=== PATIENT | male | born 1965 | race Caucasian/White ===

== ENCOUNTER 2021-09-07 01:25 | Inpatient (IN) ==
[2021-09-07] MEDS ORDERED: SODIUM CHLORIDE 0.9% 1000ML 1,000 ML IV STA (02:10)
[2021-09-07] MEDS ORDERED: ONDANSETRON INJ 2 MG/ML 2 ML VIAL IV STA (02:10)
[2021-09-07] MEDS ORDERED: MoRPHine SULFATE 4 MG/ML 1 ML CARP\\VIAL IV STA (02:15)
[2021-09-07 02:22] LABS: Basophils # (auto) 0.05 K/uL (0-0.2); Basophils % (auto) 0.6 %; Eosinophils # (auto) 0.06 K/uL (0-0.5); Eosinophils % (auto) 0.7 %; Hematocrit (blood only) 33.5 % (42-52); Hemoglobin 9.7 g/dL (14.0-18.0); Immature Granulocytes # (auto) 0.01 K/uL (0.00-0.02); Immature Granulocytes % (auto) 0.1 %; Lymphocytes # (auto) 1.12 K/uL (1.2-3.4); Mean Corpuscular Hemoglobin 22.2 pg (25-34); Mean Corpuscular Volume 76.7 fL (80-100); Mean Platelet Volume 8.7 fL (7.4-10.4); Monocytes # (auto) 0.43 K/uL (0.11-0.59); Monocytes % (auto) 5.4 %; Neutrophils # (auto) 6.35 K/uL (1.4-6.5); Neutrophils % (auto) 79.2 %; Platelet Count 448 K/uL (130-400); RDW Coefficient of Variation 17.3 % (11.5-14.5); RDW Standard Deviation 48.6 fL (36.4-46.3); Red Blood Count 4.37 M/uL (4.7-6.1); White Blood Count 8.02 K/uL (4.8-10.8)
[2021-09-07 02:27] LABS: Appearance Urine Cloudy (Clear); Bacteria Urine Automated Negative (Negative); Bilirubin Urine Negative (Negative); Blood Urine Negative (Negative); Color Urine Dark Yellow; Glucose Urine UA 2+ (Negative); Ketones Urine Trace (Negative); Leukocyte Esterase Urine Negative (Negative); Nitrite Urine Negative (Negative); Protein Urine Trace (Negative); RBC Urine Automated 0-4 /hpf (0-4); Specific Gravity Urine 1.025 (1.000-1.030); Urobilinogen Urine Negative (Negative); pH Urine 5.5 (4.5-7.5)
[2021-09-07 02:29] LABS: INR 1.1 (0.9-1.1)
[2021-09-07 02:44] LABS: Troponin I < 0.03 ng/ml (0-0.04)
[2021-09-07 02:45] LABS: Alanine Aminotransferase 68 U/L (7-52); Albumin Globulin Ratio 1.5 (0.9-2); Albumin Level 3.8 gm/dl (3.4-5.0); Alkaline Phosphatase 136 U/L (34-104); Anion Gap 12 (3-11); Aspartate Aminotransferase 70 U/L (13-39); BUN Creatinine Ratio 18.5 (10-20); Bilirubin,Total 0.7 mg/dl (0.2-1.0); Blood Urea Nitrogen 15 mg/dl (6-23); Carbon Dioxide 21 mmol/L (21-32); Chloride 98 mmol/L (98-107); Est GFR (Non-African American) 100.1 ml/min; Globulin 2.6 gm/dl (2.5-4.0); Glucose 268 mg/dl (70-99(Fasting)); Lipase 60 U/L (11-82); Potassium 3.5 mmol/L (3.5-5.1); Sodium 131 mmol/L (136-145); Total Protein 6.4 gm/dl (6.0-8.3)
[2021-09-07] MEDS ORDERED: OPTIRAY 320 100ml IV ONE (02:55)
[2021-09-07] MEDS ORDERED: LORazepam 2 MG/1 ML VIAL IV STA (03:06)
[2021-09-07] MEDS ORDERED: PIPERACILLIN/TAZOBACTAM 4.5 GM/120 ML BAG IV ONE (04:00)
[2021-09-07] MEDS ORDERED: PIPERACILL/TAZOBAC CONSULT ACTIVE PRN (04:14)
[2021-09-07] MEDS ORDERED: MoRPHine SULFATE 2 MG/ML CARP IV PRN (04:17)
[2021-09-07] MEDS ORDERED: MoRPHine SULFATE 4 MG/ML 1 ML CARP\\VIAL IV PRN (04:17)
--- NOTE | 2021-09-07 04:17 | Surgery Consultation ---
Date of Consultation September 07, 2021 Assessment & Plan (1) Gastric ulcer: The present situation was discussed with the patient the ER attending and medical service systemic is written for we will give another bolus fluids so far recently received 1 L we will plan to proceed with surgery The procedure was explained to the patient and significant other will be make an incision over so the perforation washout his abdomen Risk and complication including bleeding infection failure to heal was discussed with the patient and significant other and we will proceed accordingly Surgery has been called antibiotics to be administered All question answered including anticipated recovery time and days in the hospital We consult at the medical service who whereof to see the patient and will do the admission Present situation was discussed with the patient and significant other Patient is to go to surgery for oversewing of gastric ulcer abdominal washout Risk and complication of surgery were explained to him including bleeding infection injury to other organs Medical service was consulted and was kind enough to see the patient preoperatively and plan for admission All question answered Present time will give more fluid received a 1 L lactated Ringer's will give another liter systemic antibiotics has been ordered we will place an order for ULISSES carter Surgery has been called permit has been signed History of Present Illness Reason for Consultation: Perforated gastric ulcer History of Present Illness This 56-year-old gentleman here with significant other past history of heavy alcohol use tobacco abuse some past psychological issue approximately 11:00 last night started experience severe abdominal pain progressively worsened came to the emergency room work-up and occluding a CAT scan showed him to have findings likely gastric perforation He denies any previous surgical history He denies any cardiac history He has COPD and stating going up a hill he gets some shortness of breath Denies any swelling in his feet Home Medications Medication Instructions Recorded Confirmed Type clonazepam 0.5 mg tablet (Klonopin) 0.5 - 1 mg PO HS #20 tab 05/01/19 Rx Patient History Medical History (Updated 09/07/21 @ 04:14 by Randall Randall MD, FACS) Anxiety Depression Family History Other Family history non-contributory Social History Smoking Status: Current every day smoker Preferred Language: Persian Feels Safe at Home: Yes Physical Exam Physical Exam: Patient is alert coherent as stated here with significant other The head is normocephalic the sclerae nonicteric No cervical lymphadenopathy Lungs clear bilaterally no wheezing Heart normal sinus rhythm no murmurs or gallop The abdomen is distended acute tenderness generalized The extremity show no pedal edema Results & Data ([facility]) Vital Signs (Past 12 Hours) Vital Signs Temp Pulse Pulse Resp BP BP Pulse Ox 09/07/21 03:49 121 H 32 H 158/88 H 92 09/07/21 02:12 97 09/07/21 01:29 36.2 C L 117 H 18 176/135 H 99 Laboratory Results Lab noted Diagnostic Findings CT scan reviewed PG Care Time/CCT Total # of Minutes Spent Total Time Spent with Patient: Total time spent is greater than 50% in coordination of care (as documented) at patient's floor/unit and/or counseling patient: Coding Level of Care Code 39128 Office/OBS Consult Lvl 4 Diagnoses Gastric ulcer K25.9
[2021-09-07] MEDS ORDERED: LACTATED RINGER'S 500 ML IV ONE (04:25)
[2021-09-07] MEDS ORDERED: BUPIVACAINE 0.5 % 5 MG/1 ML MPF 30ML VIAL ONE (04:30)
--- NOTE | 2021-09-07 04:41 | History & Physical Report ---
Date of Service September 07, 2021 Assessment & Plan (1) Gastric ulcer: Plan: Ravi is a 56-year-old male with a past medical history of MS on no medications, anxiety/depression and alcohol abuse who presents with several weeks of abdominal pain severely worsened since 11 PM evening of admission. Perforated gastric ulcer Patient with several weeks of intermittent abdominal pain severely worsened evening of admission CTA/P: Free air in the abdomen, perforated gastric ulcer No leukocytosis. Hemoglobin 9.7. Troponin negative, glucose 268 Ethyl alcohol 17.3 mg/deciliter on admission Covid negative Received 1 L NSS in ER Zosyn 4.5 g slow infusion every 8 hours, additional LR 1 L bolus ordered and 120 cc/h Surgery consulted. Discussed with Dr. Randall, patient proceeding to OR emergently PPI gtt (2) Alcohol abuse: Plan: Patient reports increasing alcohol dependence drinking up to a fifth per day of hard liquor recently gin Patient reports last alcohol free days were last year, has experienced shakes in the past but no seizures or DTs Alcohol 17.3 on admission AWSS active protocol n.p.o. at this time Patient proceeding with surgery as above Thiamine 500 mg x 1, 200 mg 3 times daily, then 100 mg daily protocol Folic acid daily + Librium protocol once able to tolerate p.o. AST 70, ALT 63 elevation on admit CMP daily (3) Depression: Plan: Continue venlafaxine 75 mg XR once daily, currently held while n.p.o. (4) Multiple sclerosis: Plan: Patient reports he was diagnosed with this ~10 years ago but has not needed any medications does not have current deficits (5) COPD (chronic obstructive pulmonary disease): Plan: - Endorses history of intermittent wheezing with tobacco use 1-2ppd, no formal PFTs/inhaler use/COPD diagnosis - Albuterol PRN Plan: DVT prophylaxis: SCDs, teds make surgical intervention above Diet: N.p.o. Disposition: PCU/ICU pending surgical course and recovery CODE STATUS: Full code History of Present Illness Primary Care Provider: NO PCP Ravi is a 56-year-old male with a past medical history of MS on no medications, anxiety/depression and alcohol abuse who presents with several weeks of abdominal pain severely worsened since 11 PM evening of admission. H&P somewhat abbreviated as patient being prepped for OR. Ravi reports that he has a medical history of abdominal pain on and off for several weeks. He has been taking Pepto-Bismol intermittently for this, and twice daily in the past week which causes a stool to become dark/black. He has not appreciated any blood in his stool. Reports he also takes ibuprofen 2 tablets 200 mg a day intermittently, uses this for couple of days approximately 2 weeks each month for also/joint pain. He drinks alcohol daily, recently approximately 1/5 a day of liquor usually gin. He has not had an alcohol free day since last summer. He has experienced shaking when going without alcohol before, denies any history of seizure or DTs. Is aware CT scan has showed a perforated gastric ulcer with free air in the abdomen. Denies fever, chills. Endorses breathing is difficult because of the pain in his abdomen on inspiration, otherwise no shortness of breath. Denies any cardiac history, or history of heart problems. He does endorse intermittent wheezing, no wheezing at bedside. He does not have a formal diagnosis of COPD, does not use inhalers.He is a current smoker. He denies any medication or environmental allergies Denies recent medication changes Medical History: Reviewed Medications: Reviewed Surgical History: Reviewed Allergies: Reviewed Social History: Endorses high alcohol use as above, current tobacco use Code Status: Full code. Surrogate decision maker would be his Hyacinth Kay Medications Medication Instructions Recorded Confirmed Type clonazepam 0.5 mg tablet (Klonopin) 0.5 - 1 mg PO HS #20 tab 05/01/19 Rx Past Med/Surg History Medical History Anxiety Depression Multiple sclerosis Family History Other Family history non-contributory Social History (Updated 09/07/21 @ 04:49 by Parth Morris MD) Smoking Status: Current every day smoker Tobacco Type: Cigarettes packs per day: 1.5; Hx Alcohol Use: Yes (fifth per day, alcohol abuse/dependence) Alcohol type: hard liquor Alcohol Intake Frequency: 4 or More x per/Week Preferred Language: Chilean Feels Safe at Home: Yes Review of Systems Review of Systems: All systems reviewed & are unremarkable except as noted in HPI & below Physical Exam Physical Exam: General: A&Ox3. NAD. Peers uncomfortable, cooperative. Skin warm, moist HEENT: Atraumatic, normocephalic. Pupils equal and reactive to light. Vision and hearing grossly intact. Pulm: CTAB A&P. -wheezes, -rales, -rhonchi. Symmetrical chest rise. No increase in work of breathing. No respiratory distress. Cardiac: Tachycardic, regular, -mrg. Radial pulses intact and symmetrical. Abdominal: Diffusely tender to palpation, distended. Extremities: Sensation of soft touch intact in hands and feet bilaterally, PT pulses intact bilaterally, radial pulses intact bilaterally, cap refill approximately 2 seconds in the thumb bilaterally. Results & Data Results & Data ([facility]) Vital Signs (Past 12 Hours) Vital Signs Temp Pulse Pulse Resp BP BP Pulse Ox 09/07/21 03:49 121 H 32 H 158/88 H 92 09/07/21 02:12 97 09/07/21 01:29 36.2 C L 117 H 18 176/135 H 99 PG Care Time/CCT Total # of Minutes Spent Total Time Spent with Patient: Total time spent is greater than 50% in coordination of care (as documented) at patient's floor/unit and/or counseling patient: Coding Level of Care Code 65415 Initial Inpt Care Lvl 3 Diagnoses Gastric ulcer K25.9 Alcohol abuse F10.10 Depression F32.9 Multiple sclerosis G35 COPD (chronic obstructive pulmonary disease) J44.9
[2021-09-07] MEDS ORDERED: PROPOFOL IV EMULSION 10 MG/ML 20 ML VIAL IV ONE (04:42)
[2021-09-07] MEDS ORDERED: LIDOCAINE 2% 2 ML VIAL/AMP(20MG/ML) INFIL ONE (04:42)
[2021-09-07] MEDS ORDERED: ROCURONIUM BROMIDE 10 MG/ML 5 ML VIAL IV ONE (04:42)
[2021-09-07] MEDS ORDERED: SUCCINYLCHOLINE CHLORIDE 20 MG/ML 10 ML VIAL IV ONE (04:42)
[2021-09-07] MEDS ORDERED: NEOSTIGMINE METHYLSULFATE 1 MG/ML 10ML VIAL ONE (04:43)
[2021-09-07] MEDS ORDERED: GLYCOPYRROLATE 0.2 MG/ML VIAL ONE (04:43)
[2021-09-07] MEDS ORDERED: ONDANSETRON INJ 2 MG/ML 2 ML VIAL ONE (04:43)
--- NOTE | 2021-09-07 04:43 | Emergency Department Note ---
History of Present Illness General Chief complaint: Abdominal Pain Stated complaint: SEVERE ABDOMINAL PAIN Time Seen by Provider: 09/07/21 01:34 History of Present Illness Maximum Pain Intensity: 10 Ravi is a 56-year-old male that presents to the emergency room with severe epigastric pain starting at 11pm today. He is currently rating the pain a 10/10. He states that it radiates through to his back and all through his abdomen. The pain is described as a sharp constant pain. He has had a similar pain in the past, but nothing that has been this severe or lasted this long. He has tried taking tums, Pepcid and Advil, but nothing seems to help. He reports a history of alcohol abuse. He has consumed at least a 5th of 80 proof Gin today. With his last drink being around 9. He admits that he gets tremors, headaches, chill, and nausea whenever he goes without alcohol for more than 3-6 hours. The longest he has gone without a drink is for approximately a week before the pandemic [address] arted. He would like help to stop drinking and states he cant continue to go on like this. He also admits to smoking 2 packs of cigarettes daily. He admits to nausea, vomiting, lightheadedness, dizziness, headache, chest palpitations, and shortness of breath. He denies urinary urgency, incontinence, hematuria, but admits to increased frequency. He states that his bowel have never been regular, with bouts of frequent diarrhea. Home Medications Medication Instructions Recorded Confirmed Type clonazepam 0.5 mg tablet (Klonopin) 0.5 - 1 mg PO HS #20 tab 05/01/19 Rx Allergies Allergy/AdvReac Type Severity Reaction Status Date / Time No Known Allergies Allergy Verified 09/07/21 05:00 Past Med/Surg History Medical History Anxiety Depression Multiple sclerosis Family History Other Family history non-contributory Social History Smoking Status: Current every day smoker Tobacco Type: Cigarettes packs per day: 1.5; Hx Alcohol Use: Yes (fifth per day, alcohol abuse/dependence) Alcohol type: hard liquor Alcohol Intake Frequency: 4 or More x per/Week Preferred Language: Welsh Feels Safe at Home: Yes Review of Systems A total of 10 systems reviewed and were otherwise negative Physical Exam Vital Signs Vital Signs - 24 hr 09/07/21 01:29 09/07/21 02:12 09/07/21 03:49 Temperature 36.2 C L Temperature Source Temporal Artery Scan Pulse Rate 117 H Pulse Rate [Finger] 121 H Respiratory Rate 18 32 H Blood Pressure 176/135 H Blood Pressure [Right Arm] 158/88 H Blood Pressure Mean 148 Blood Pressure Mean [Right Arm] 111 Pulse Oximetry 99 97 92 Oxygen Delivery Method Room Air Room Air Room Air Sepsis Recent Fever Within 48 Hours No Sepsis New/Unexplained Change in Mental Status N/A Sepsis Action Taken by Nursing No Action Required VITALS: Vitals are noted on the nurse's note and reviewed by myself. Vital signs stable. GENERAL: This is a 56-year-old white male in no acute distress, nondiaphoretic, well-developed well-nourished. SKIN: The skin was without rashes, erythema, edema, or bruising. There is no tenting of the skin. Capillary refill less than 2 seconds. HEAD: Normocephalic atraumatic. EYES: Conjunctivae without injection, sclerae without icterus. NECK: Supple without nuchal rigidity. No lymphadenopathy. No JVD. HEART: Regular rate and rhythm without murmurs gallops or rubs. LUNGS: Clear to auscultation bilaterally without wheezes, rales or rhonchi. No retractions or accessory muscle use. ABDOMEN: Positive bowel sounds x 4. Distended. Diffuse tenderness to palpation, without masses or organomegaly. No guarding or rebound tenderness. No CVA tenderness to palpation. MUSCULOSKELETAL: No muscle atrophy, erythema, or edema noted. Full range of motion without joint tenderness in all extremities. No tenderness to palpation. Normal gait. Strength 5/5 throughout. NEURO: Patient was alert and oriented to person place and time. No focal neurological deficits. Course Course The patient was seen and evaluated as above. An order was placed for continuous cardiac monitoring. The monitor shows a sinus tachycardia at a rate of 121 bpm. IV access obtained, labs drawn. Labs reviewed by myself. Imaging performed and reviewed by myself and radiologist as noted. I discussed the findings with the patient at bedside. I discussed the case with my attending. I discussed the case with Dr. Randall, general surgeon on-call. He did agree to take the patient to the OR I discussed the case with [facility] hospitalist, Dr. Morris. They did agree to admit the patient to their service. Please see hospitalist and surgery dictation regarding ongoing management and final disposition of this patient Administered Medications Lactated Ringer's (Lr) 500 mls @ 999 mls/hr IV .Q31M ONE Stop: 09/07/21 04:55 Last Admin: 09/07/21 04:38 Dose: 999 mls/hr Documented by: [id number] Discontinued Medications Sodium Chloride (Nss 1000ml) 1,000 mls @ 999 mls/hr IV .Q1H1M STA Stop: 09/07/21 03:10 Last Infusion: 09/07/21 03:37 Dose: 0 mls/hr Documented by: [id number] Admin: 09/07/21 02:24 Dose: 999 mls/hr Documented by: [id number] Piperacillin Sod/Tazobactam Sod (Zosyn) 4.5 gm in 120 mls @ 240 mls/hr IV NOW ONE Stop: 09/07/21 04:29 Last Admin: 09/07/21 04:12 Dose: 240 mls/hr Documented by: [id number] Ioversol (Optiray 320 100ml) 94 ml IV ONCE ONE Stop: 09/07/21 02:56 Last Admin: 09/07/21 02:55 Dose: 94 ml Documented by: [id number] Lorazepam (Lorazepam 2 Mg/1 Ml Vial) 1 mg IV NOW STA Stop: 09/07/21 03:07 Last Admin: 09/07/21 03:18 Dose: 1 mg Documented by: [id number] Morphine Sulfate (Morphine Sulfate 4 Mg/Ml 1 Ml Carp\Vial) 4 mg IV NOW STA Stop: 09/07/21 02:16 Last Admin: 09/07/21 02:18 Dose: 4 mg Documented by: [id number] Ondansetron HCl (Ondansetron Inj 2 Mg/Ml 2 Ml Vial) 4 mg IV NOW STA Stop: 09/07/21 02:11 Last Admin: 09/07/21 02:18 Dose: 4 mg Documented by: [id number] Medical Decision Making Differential Diagnosis Etiologies such as appendicitis, diverticulitis, obstruction, inflammatory bowel disease, renal colic, PUD, biliary pathology, pancreatitis, mesenteric ischemia, aortic pathology, infections, genitourinary, UTI, perforated viscus, as well as others were entertained. Medical Records Attestation: I reviewed the patient's medical records. Home Medications Current Medication List: was personally reviewed by me Laboratory Data Attestation: I reviewed the patient's lab results. No leukocytosis. Anemia with a hemoglobin of 9.7 hematocrit of 33.5. Platelet count elevated 448. INR 1.1. Lipase 60. Troponin negative. ETOH 17.3. Result diagrams: 09/07/21 02:00 09/07/21 02:00 Lab Results 09/07/21 09/07/21 09/07/21 Range/Units 02:00 02:00 02:00 WBC 8.02 (4.8-10.8) K/uL RBC 4.37 L (4.7-6.1) M/uL Hgb 9.7 L (14.0-18.0) g/dL Hct 33.5 L (42-52) % MCV 76.7 L (80-100) fL MCH 22.2 L (25-34) pg MCHC 29.0 L (32-36) g/dL RDW Std Deviation 48.6 H (36.4-46.3) fL RDW Coeff of [place] 17.3 H (11.5-14.5) % Plt Count 448 H (130-400) K/uL MPV 8.7 (7.4-10.4) fL Immature Gran % (Auto) 0.1 % Neut % (Auto) 79.2 % Lymph % (Auto) 14.0 % [place] % (Auto) 5.4 % Eos % (Auto) 0.7 % Baso % (Auto) 0.6 % Neut # (Auto) 6.35 (1.4-6.5) K/uL Lymph # (Auto) 1.12 L (1.2-3.4) K/uL [place] # (Auto) 0.43 (0.11-0.59) K/uL Eos # (Auto) 0.06 (0-0.5) K/uL Baso # (Auto) 0.05 (0-0.2) K/uL Immature Gran # (Auto) 0.01 (0.00-0.02) K/uL PT 12.0 (9.0-12.0) Seconds INR 1.1 (0.9-1.1) Sodium 131 L (136-145) mmol/L Potassium 3.5 (3.5-5.1) mmol/L Chloride 98 (98-107) mmol/L Carbon Dioxide 21 (21-32) mmol/L Anion Gap 12 H (3-11) BUN 15 (6-23) mg/dl Creatinine 0.81 (0.6-1.4) mg/dl Est Cr Clr Drug Dosing 122.0 ml/min Est GFR ( Amer) 116.0 ml/min Est GFR (Non-Af Amer) 100.1 ml/min BUN/Creatinine Ratio 18.5 (10-20) Glucose 268 H (70-99(Fasting)) mg/dl Calcium 9.0 (8.5-10.1) mg/dl Total Bilirubin 0.7 (0.2-1.0) mg/dl AST 70 H (13-39) U/L ALT 68 H (7-52) U/L Alkaline Phosphatase 136 H (34-104) U/L Troponin I < 0.03 (0-0.04) ng/ml Total Protein 6.4 (6.0-8.3) gm/dl Albumin 3.8 (3.4-5.0) gm/dl Globulin 2.6 (2.5-4.0) gm/dl Albumin/Globulin Ratio 1.5 (0.9-2) Lipase 60 (11-82) U/L Urine Color Urine Appearance (Clear) Urine pH (4.5-7.5) Ur Specific [place] (1.000-1.030) Urine Protein (Negative) Urine Glucose (UA) (Negative) Urine Ketones (Negative) Urine Blood (Negative) Urine Nitrite (Negative) Urine Bilirubin (Negative) Urine Urobilinogen (Negative) Ur Leukocyte Esterase (Negative) Urine WBC (Auto) (0-5) /hpf Urine RBC (Auto) (0-4) /hpf U Hyaline Cast (Auto) (0-5) /lpf U Epithel Cells (Auto) (0-5) /lpf Urine Bacteria (Auto) (Negative) Ethyl Alcohol mg/dL (<10.0) mg/dl SARS-CoV-2, RNA, NAAT (NEGATIVE) 09/07/21 09/07/21 09/07/21 Range/Units 02:00 02:00 03:40 WBC (4.8-10.8) K/uL RBC (4.7-6.1) M/uL Hgb (14.0-18.0) g/dL Hct (42-52) % MCV (80-100) fL MCH (25-34) pg MCHC (32-36) g/dL RDW Std Deviation (36.4-46.3) fL RDW Coeff of [place] (11.5-14.5) % Plt Count (130-400) K/uL MPV (7.4-10.4) fL Immature Gran % (Auto) % Neut % (Auto) % Lymph % (Auto) % [place] % (Auto) % Eos % (Auto) % Baso % (Auto) % Neut # (Auto) (1.4-6.5) K/uL Lymph # (Auto) (1.2-3.4) K/uL [place] # (Auto) (0.11-0.59) K/uL Eos # (Auto) (0-0.5) K/uL Baso # (Auto) (0-0.2) K/uL Immature Gran # (Auto) (0.00-0.02) K/uL PT (9.0-12.0) Seconds INR (0.9-1.1) Sodium (136-145) mmol/L Potassium (3.5-5.1) mmol/L Chloride (98-107) mmol/L Carbon Dioxide (21-32) mmol/L Anion Gap (3-11) BUN (6-23) mg/dl Creatinine (0.6-1.4) mg/dl Est Cr Clr Drug Dosing ml/min Est GFR ( Amer) ml/min Est GFR (Non-Af Amer) ml/min BUN/Creatinine Ratio (10-20) Glucose (70-99(Fasting)) mg/dl Calcium (8.5-10.1) mg/dl Total Bilirubin (0.2-1.0) mg/dl AST (13-39) U/L ALT (7-52) U/L Alkaline Phosphatase (34-104) U/L Troponin I (0-0.04) ng/ml Total Protein (6.0-8.3) gm/dl Albumin (3.4-5.0) gm/dl Globulin (2.5-4.0) gm/dl Albumin/Globulin Ratio (0.9-2) Lipase (11-82) U/L Urine Color Dark Yellow Urine Appearance Cloudy A (Clear) Urine pH 5.5 (4.5-7.5) Ur Specific [place] 1.025 (1.000-1.030) Urine Protein Trace H (Negative) Urine Glucose (UA) 2+ H (Negative) Urine Ketones Trace H (Negative) Urine Blood Negative (Negative) Urine Nitrite Negative (Negative) Urine Bilirubin Negative (Negative) Urine Urobilinogen Negative (Negative) Ur Leukocyte Esterase Negative (Negative) Urine WBC (Auto) 1-5 (0-5) /hpf Urine RBC (Auto) 0-4 (0-4) /hpf U Hyaline Cast (Auto) 1-5 (0-5) /lpf U Epithel Cells (Auto) 10-20 H (0-5) /lpf Urine Bacteria (Auto) Negative (Negative) Ethyl Alcohol mg/dL 17.3 H (<10.0) mg/dl SARS-CoV-2, RNA, NAAT NEGATIVE (NEGATIVE) Imaging Data Radiologist's Impression: CT ABDOMEN & PELVIS With Contrast: There is free air in the abdomen. The etiology of this free air is likely secondary to a perforated gastric ulcer of the distal stomach. There is marked fatty infiltration of the liver. A small amount of free fluid in the abdomen and pelvis is nonspecific. The remaining solid organs are within normal limits. No bowel obstruction. No fracture. Normal appendix. Radiologist: Abbey Osorio MD ECG Data Attestation: I personally reviewed and interpreted this ECG as follows: Indication: + abdominal pain Rate (beats per minute): 108 Rhythm: + sinus tachycardia ECG [place]: + Left axis deviation ECG ST segments: no ST depression, no ST elevation or no T-wave inversions Comparison ECG Date: no prior available Blood Pressure Blood Pressure Findings: Elevated blood pressure MDM Narrative This 56-year-old male patient presents to the emergency department today for evaluation of epigastric abdominal pain. This has been intermittent for several weeks but significantly worsened at about 11 PM. Laboratory evaluation as above. CT imaging performed due to the patient's pain. Findings consistent with free air in the abdomen secondary to perforated gastric ulcer of the distal stomach. I did consult general surgery. He did agree to see the patient. Will take the patient to the OR. Hospitalist will complete the admission due to the alcoholism and questionable COPD. Patient medicated with morphine, Ativan, IV fluids, and Zosyn. Please see hospitalist and general surgery dictation regarding ongoing management of this patient. The chart was completed utilizing [employer] Speech voice recognition software. Grammatical errors, random word insertions, pronoun errors, and incomplete sentences are an occasional consequence of this system due to software limitations, ambient noise, and hardware issues. Any formal questions or concerns about the content, text, or information contained within the body of th is dictation should be directly addressed to the provider for clarification. Impression & Plan Gastric ulcer, Alcohol abuse, Abdominal pain Discharge Plan Visit Data Chief Complaint: Abdominal Pain Stated Complaint: SEVERE ABDOMINAL PAIN ED Provider: Johnathan John ED Midlevel Provider: Emely Joy Patient Disposition: Admitted As Inpatient Forms Stand Alone Forms: My [facility] katena Prescriptions Prescriptions: No Action clonazepam [Klonopin] 0.5 mg tablet 0.5 - 1 mg PO HS Qty: 20 RF: 0 Referrals Referrals: PCP,NO [Primary Care Provider] -
[2021-09-07] MEDS ORDERED: fentaNYL citrate 100 MCG/2 ML VIAL ONE ×3 (04:44→07:03)
[2021-09-07] MEDS ORDERED: HYDROmorphone INJ 2 MG/ML SYR/VIAL IV PRN (04:51)
[2021-09-07] MEDS ORDERED: ONDANSETRON INJ 2 MG/ML 2 ML VIAL IV PRN ×2 (04:51→23:50)
[2021-09-07] MEDS ORDERED: fentaNYL citrate 100 MCG/2 ML VIAL IV PRN (04:51)
[2021-09-07] MEDS ORDERED: ATROPINE SULFATE 0.1 MG/ML 10ML SYR IV PRN (04:51)
[2021-09-07] MEDS ORDERED: ePHEDrine sulfate 50 MG/ML AMP IV PRN (04:51)
[2021-09-07] MEDS ORDERED: PROMETHAZINE HCL 12.5 MG in SODIUM CHLORIDE 0.9% 50 ML IV PRN (04:51)
--- NOTE | 2021-09-07 04:52 | Anesthesiology Consultation ---
Date of Service September 07, 2021 Assessment & Plan Chart Review Chart Review: Acceptable Risk for Surgery Consults Requested none History Surgery Operation Date: 09/07/21 05:15 Proposed Procedures p Exploratory Laparotomy - Randall Randall MD, FACS Height/Weight Height: 5 ft 10 in Weight: 99.7 kg Medications Home Medications Medication Instructions Recorded Confirmed Last Taken clonazepam 0.5 mg tablet (Klonopin) 0.5 - 1 mg PO HS #20 tab 05/01/19 Unknown Active Medications Generic Name Dose Route Start Last Admin Trade Name Leola PRN Reason Stop Dose Admin Lactated Ringer's 500 mls @ 999 mls/hr 09/07/21 04:25 09/07/21 04:38 Lr IV 09/07/21 04:55 999 mls/hr .Q31M ONE Administration Past Medical History Medical History Anxiety Depression Multiple sclerosis Past Family History Family History Other Family history non-contributory Social History Smoking Status: Current every day smoker Hx Alcohol Use: Yes (fifth per day, alcohol abuse/dependence) Alcohol type: hard liquor Physical Exam Vital Signs Last Vital Signs Temp 36.2 C L 09/07/21 01:29 Pulse 121 H 09/07/21 03:49 Resp 32 H 09/07/21 03:49 BP 158/88 H 09/07/21 03:49 Pulse Ox 92 09/07/21 03:49 Testing Laboratory Results 09/07/21 02:00 09/07/21 02:00 PT 12.0 Seconds (9.0-12.0) 09/07/21 02:00 INR 1.1 (0.9-1.1) 09/07/21 02:00 Urine Color Dark Yellow 09/07/21 02:00 Urine Appearance Cloudy (Clear) A 09/07/21 02:00 Urine pH 5.5 (4.5-7.5) 09/07/21 02:00 Ur Specific [place] 1.025 (1.000-1.030) 09/07/21 02:00 Urine Protein Trace (Negative) H 09/07/21 02:00 Urine Glucose (UA) 2+ (Negative) H 09/07/21 02:00 Urine Ketones Trace (Negative) H 09/07/21 02:00 Urine Nitrite Negative (Negative) 09/07/21 02:00 Ur Leukocyte Esterase Negative (Negative) 09/07/21 02:00 Urine WBC (Auto) 1-5 /hpf (0-5) 09/07/21 02:00 Urine RBC (Auto) 0-4 /hpf (0-4) 09/07/21 02:00 U Hyaline Cast (Auto) 1-5 /lpf (0-5) 09/07/21 02:00 U Epithel Cells (Auto) 10-20 /lpf (0-5) H 09/07/21 02:00 Urine Bacteria (Auto) Negative (Negative) 09/07/21 02:00
--- NOTE | 2021-09-07 06:56 | Post Operative Brief Note ---
PG Immediate Post Op with CF Date of Surgery September 07, 2021 Pre & Post Diagnosis Operation Date: 09/07/21 05:15 Pre-Op Diagnosis: Perforated Pre Pyloric Gastric Ulcer Post-Op Diagnosis: Perforated Pre Pyloric Gastric Ulcer I identified the patient and participated in the time-out.: Yes Procedure Operation Date: 09/07/21 05:15 Actual Procedures p Exploratory Laparotomy and Suture Repair of Perforated Pre Pyloric Gastric Ulcer - Randall Randall MD, FACS Surgeon Randall Randall MD, FACS Milking System Installer 0 Estimated Blood Loss 30 Findings Consistent with Post-Op Diagnosis Specimens Specimen Description: Cath urine for routine C&S Drains Richie Drain (19fr) and Campbell Catheter (16fr campbell inserted without difficulty by Valeriano Powell RN. Campbell is patent and draining clear yellow urine. Anesthesia to monitor urine ouput intraoperatively.)
--- NOTE | 2021-09-07 07:28 | Operative Report ---
Post Operative Report Pre & Post Diagnosis Operation Date: 09/07/21 05:15 Pre-Op Diagnosis: Perforated Pre Pyloric Gastric Ulcer Post-Op Diagnosis: Perforated Pre Pyloric Gastric Ulcer I identified the patient and participated in the time-out.: Yes Procedure Operation Date: 09/07/21 05:15 Actual Procedures p Exploratory Laparotomy and Suture Repair of Perforated Pre Pyloric Gastric Ulcer - Randall Randall MD, FACS abdominal washout The patient was brought into the operative theater general endotracheal anesthesia patient was prepped byline solution properly draped systemic biotics on board timeout was had patient identified we made a midline incision in the upper abdomen approximately 2 inches below the xiphoid through the umbilical area deep to subcutaneous tissue went to the abdomen air escaped and we could see this fibrous exudate in the upper abdomen patient radiographically had what appeared to be perforated gastric ulcer at this point we irrigated the abdomen out multiple liters of normal saline then replaced the Porter retractor and to visualize the area the stomach. The stomach was markedly dilated even though he had a perforation we placed an NG tube at about 60 cm I could feel it in the stomach and placed on suction that is reelevated the left lobe of the liver we can see that the perforation had gone into the gallbladder area no true fistula was obtained were seen as we exposed the area with elected to place a Bookwalter retraction and identified the perforation which was approximately 2 cm on side in the prepyloric area he had some food particles coming out when he first identified it cleared it all up. This point elected to close tongue of omentum which we created extending proximally 4 inches and unrelated on the perforation by using 3-0 interrupted silk taking bites proximal and distal to opening in the stomach then laying the omentum on the perforation then tied to silk around the omentum these were done with 3-0 interrupted silk once this had been completed we further tacked down the patch taking bites with abnormal gastric wall to the omentum eliminating any tension that may been present for and I elected then to drain the subhepatic area after he stated it cleaned it out copiously out circumferentially above the liver down to the pelvis we placed a 19 round Richie drain to right upper quadrant stab wound placed the subhepatic line right around the stomach area perforation and sutured to the skin edge with 2-0 silk suture the abdomen was then closed with #1 PDS starting 1 cephalad and caudad and tied in the middle quarter inch Sharps was used in the subcu tinea distally and proximally with 3-0 silk and veronica for skin edges dressing was applied estimated blood loss 30 cc At the end the procedure I did take fluids from the Richie drain and send it for aerobes and anaerobes Spoke with his Kendra in waiting room Surgeon Randall Randall MD, FACS Receipt And Report Clerk 0 Estimated Blood Loss 30 Findings Consistent with Post-Op Diagnosis 2 cm prepyloric gastric ulcer perforation Specimens DRY SANDER abdominal fluid Drains 19 Richie drain subhepatic no gastric perforation Quarter-inch Mary and subcu Description of Procedure merda I attest to the content of the Intraoperative Record and any orders documented therein. Any exceptions are noted below.
--- NOTE | 2021-09-07 07:38 | CT Scan Report ---
ABDOMEN AND PELVIS CT WITH IV CONTRAST CT DOSE: 799.93 mGy.cm HISTORY: epigastric pain TECHNIQUE: Multiaxial CT images of the abdomen and pelvis were performed following the use of intrave nous contrast. A dose lowering technique was utilized adhering to the principles of ALARA. COMPARISON STUDY: None. FINDINGS: Bibasilar linear densities consistent with subsegmental atelectasis. No fractures within th e visualized osseous structures. Mild thickening at the distal esophagus. Severe hepatic steatosis. T he liver is mildly enlarged. Thickened/edematous gallbladder wall. The spleen, adrenal glands, and ki dneys are unremarkable. No hydronephrosis. The pancreas enhances normally. Thickening at the gastric antrum and proximal duodenum most pronounced at the duodenal bulb. There is small amount of pneumoper itoneum. There is inflammatory change surrounding the proximal duodenum. Therefore, these findings li alile represent perforated duodenal ulcer. The main portal vein is patent. No retroperitoneal lymphade nopathy. The bladder is unremarkable. Small amount of ascites. Small fat-containing left inguinal her ashwin. No evidence for bowel obstruction. Normal appendix. Small fat-containing umbilical hernia. IMPRESSION: 1. Inflammatory change within the right upper quadrant surrounding the thickened proximal duodenum. G iven the associated small amount of pneumoperitoneum, this likely represents a perforated duodenal ul cer. 2. The gallbladder wall is thickened/edematous which may be reactive to the adjacent duodenal abnorma lity. An acute cholecystitis is considered less likely but not entirely excluded. 3. Severe hepatic steatosis. 4. Small amount of ascites. 5. Urgent surgical consultation recommended. ACT 112: Negative or not required by law. Electronically signed by: Salvador Myers M.D. 09/07/2021 7:37 AM
--- NOTE | 2021-09-07 07:40 | Anesthesiology Progress Note ---
Date of Service September 07, 2021 Anesthesia Post Procedure Vital Signs Vital Signs: Temp Pulse Pulse Resp BP BP Pulse Ox 09/07/21 07:35 36.9 C 126 H 20 148/75 H 98 09/07/21 07:25 37.1 C 120 H 20 166/74 H 98 09/07/21 07:15 37.1 C 128 H 18 172/85 H 97 09/07/21 03:49 121 H 32 H 158/88 H 92 09/07/21 02:12 97 09/07/21 01:29 36.2 C L 117 H 18 176/135 H 99 Pain Intensity Abdomen: Pain Intensity: 7 Transfer of Care Handoff Completed per policy Notes Mental Status: alert / awake / arousable and participated in evaluation Patient Amnestic to Procedure: Yes Nausea / Vomiting: adequately controlled Pain: adequately controlled Airway Patency, RR, SpO2: stable & adequate BP & HR: stable & adequate Hydration State: stable & adequate Anesthetic Complications: no major complications apparent
--- NOTE | 2021-09-07 08:11 | XRay Report ---
XR chest 1V portable HISTORY: epigastric pain COMPARISON: None. FINDINGS: No pneumothorax. No pleural effusions. The cardiac silhouette is mildly enlarged. There are bibasilar linear densities consistent with subsegmental atelectasis. Otherwise, no focal lung consol idations to suggest pneumonia. No evidence for pulmonary edema. There are low lung volumes. IMPRESSION: 1. Mild cardiomegaly. 2. Low lung volumes with bibasilar linear densities likely representing subsegmental atelectasis. ACT 112: Negative or not required by law. Electronically signed by: Salvador Myers M.D. 09/07/2021 8:09 AM
--- NOTE | 2021-09-07 08:26 | Electrocardiogram Report ---
Test Reason : Blood Pressure : / mmHG Vent. Rate : 108 BPM Atrial Rate : 108 BPM P-R Int : 158 ms QRS Dur : 076 ms QT Int : 330 ms P-R-T Axes : 039 -78 059 degrees QTc Int : 442 ms Sinus tachycardia Left atrial enlargement Left anterior fascicular block Incomplete right bundle branch block Possible Old Inferior infarct Possible Old Anterior infarct Abnormal ECG No previous ECGs available Confirmed by Yung Bustamante ([id number]) on 09/07/2021 8:25:32 AM Referred By: REFERRED SELF Confirmed By:Yung Bustamante
[2021-09-07] MEDS ORDERED: ALBUT/IPRATROP 3MG/0.5MG NEB 3 ML VIAL NEB PRN (08:29)
[2021-09-07] MEDS ORDERED: LORazepam 1 MG TAB PO PRN (08:29)
[2021-09-07] MEDS ORDERED: PIPERACILLIN/TAZOBACTAM 4.5 GM in DEXTROSE 5% 100 ML IV SCH (08:29)
[2021-09-07] MEDS ORDERED: ATIVAN IV ALCOHOL WITHDRAWL IV PRN (08:29)
[2021-09-07] MEDS ORDERED: LORazepam 2 MG/1 ML VIAL IV PRN ×3 (08:29)
[2021-09-07] MEDS ORDERED: FOLIC ACID 1 MG TAB PO SCH (09:00)
[2021-09-07] MEDS: LACTATED RINGER'S 1,000 ML IV SCH ×3 (09:02→21:25)
[2021-09-07] MEDS: PANTOprazole 40 MG in DEXTROSE 5% 100 ML IV SCH ×4 (09:04→18:33)
[2021-09-07] MEDS ORDERED: THIAMINE HCL 500 MG in SODIUM CHLORIDE 0.9% 50 ML IV ONE (09:15)
[2021-09-07] MEDS: ACETAMINOPHEN 1,000 MG/100 ML VIAL IV SCH ×2 (09:17→16:27)
[2021-09-07] MEDS ORDERED: FOLIC ACID 1 MG in SYRINGE 9.8 ML IV ONE (09:30)
[2021-09-07] MEDS: FAMOTIDINE 20 MG in SYRINGE 3 ML IV SCH ×2 (09:36→21:21)
[2021-09-07 09:53] LABS: Estimated Average Glucose 194 mg/dl; Hemoglobin A1C 8.4 % (4.5-5.6)
[2021-09-07 09:55] LABS: Hematocrit (blood only) 32.8 % (42-52); Hemoglobin 9.4 g/dL (14.0-18.0); Mean Corpuscular Hemoglobin 21.9 pg (25-34); Mean Corpuscular Hgb Conc 28.7 g/dL (32-36); Mean Corpuscular Volume 76.5 fL (80-100); Mean Platelet Volume 8.6 fL (7.4-10.4); Platelet Count 347 K/uL (130-400); RDW Coefficient of Variation 17.2 % (11.5-14.5); RDW Standard Deviation 48.1 fL (36.4-46.3); Red Blood Count 4.29 M/uL (4.7-6.1); White Blood Count 19.37 K/uL (4.8-10.8)
[2021-09-07] MEDS: PIPERACILLIN/TAZOBACTAM 3.375 GM in DEXTROSE 5% 100 ML IV SCH ×2 (10:04→17:29)
[2021-09-07] MEDS: NICOTINE 21 MG/24 HR TDSY TD SCH (10:04)
[2021-09-07 10:12] LABS: Calcium 8.8 mg/dl (8.5-10.1); Est GFR (African American) 117.2 ml/min; Est GFR (Non-African American) 101.1 ml/min; Magnesium 1.5 mg/dl (1.7-2.4); Potassium 4.3 mmol/L (3.5-5.1)
[2021-09-07 10:30] LABS: Ferritin 14.8 ng/ml (8-388)
[2021-09-07] MEDS ORDERED: GLUCOSE 40% GEL 15 GM TUBE PO PRN (10:30)
[2021-09-07] MEDS ORDERED: GLUCOSE 10 TABS/TUBE PO PRN (10:30)
[2021-09-07] MEDS ORDERED: GLUCAGON FOR INJ 1 MG VIAL IM PRN (10:30)
[2021-09-07] MEDS ORDERED: DEXTROSE 50% 50 ML SYRINGE IV PRN (10:30)
[2021-09-07] MEDS ORDERED: CARBOHYDRATES FOR HYPOGLYCEMIA PO PRN (10:30)
[2021-09-07] MEDS: INSULIN ASPART PER UNIT SC SCH ×2 (12:20→17:02)
[2021-09-07] MEDS: MAGNESIUM SULFATE / D5W 1 GM/100 ML BAG IV SCH ×3 (12:41→16:26)
--- NOTE | 2021-09-07 19:00 | Communication Note ---
Date of Service: September 07, 2021 time - 1900 Saw patient in PCU a few hours following his exploratory laparotomy and repair of a perforated gastric ulcer. He was resting comfortably; had mild abdominal pain only. NG tube in place. was at bedside. I discussed with them the high risk of etoh withdrawal, the newly-diagnosed T2DM, iron deficiency, usual plan of care for the type of surgery he had, etc. Vitals - tachycardic, but BP wnl; O2 sats wnl; afebrile gen - comfortable, awake, alert mouth - MM dry nose - NG tube in place neck - no JVD heart - tachy, s1 s2 lungs - decreased BS bases; mild rales bases b/l; slight wheeze scattered b/l abd - distended, BS markedly decreased, dressings in place, central tenderness ext - no edema, pulses 2+ b/l repeat CBC post-op - H/H acceptable, elevated WBC, microcytic MCV; platelets wnl. BMP acceptable. Mag low 1.5. Transaminitis on LFTs. A1c 8.4%. A/P: 1. perforated gastric ulcer s/p repair. Appreciate gen surg assistance. NG tube management per surgery. NPO. IV zosyn for spilling of gastric contents into peritoneal cavity. IV pain meds. IV PPI drip. 2. iron deficiency anemia - suspect slow GI bleeding over extended period of time, perhaps from his gastric ulcer. Consider IV venofer while here. Will need colonoscopy/EGD down the line for completeness. 3. T2DM - will need DM education. Start novolog, may need basal insulin as well. 4. tobacco dependence - nicoderm patch 21mg. 5. etoh abuse/dependence - ativan per etoh withdrawal protocol. Not a candidate for gabapentin taper or librium taper. IV phenobarbital in small doses (there are protocols for such) may be an option - will explore this. IV thiamine. IV folate. Check b12 level am. 6. alcoholic hepatitis - trend LFTs. 7. hypomagnesemia - 2nd to #5 - 3 grams mag sulfate IV, repeat mag level am. DVT proph - if H/H remain stable add chemical means tomorrow. Aldo Bone MD
[2021-09-07] MEDS: HYDROmorphone INJ 0.5 MG/0.5 ML SYR IV PRN (21:19)
[2021-09-07] MEDS: INSULIN GLARGINE SOLOSTAR 100 UNITS/ML 3 ML PEN SC SCH (21:21)
[2021-09-08] MEDS: PANTOprazole 40 MG in DEXTROSE 5% 100 ML IV SCH ×5 (00:01→19:52)
[2021-09-08] MEDS: ACETAMINOPHEN 1,000 MG/100 ML VIAL IV SCH ×3 (00:04→17:05)
[2021-09-08] MEDS: INSULIN ASPART PER UNIT SC SCH ×4 (00:14→17:27)
[2021-09-08] MEDS: PIPERACILLIN/TAZOBACTAM 3.375 GM in DEXTROSE 5% 100 ML IV SCH ×3 (01:45→17:05)
[2021-09-08] MEDS: HYDROmorphone INJ 0.5 MG/0.5 ML SYR IV PRN ×4 (06:10→21:19)
[2021-09-08] MEDS: LACTATED RINGER'S 1,000 ML IV SCH ×3 (06:16→22:31)
[2021-09-08 06:41] LABS: Basophils # (auto) 0.03 K/uL (0-0.2); Basophils % (auto) 0.2 %; Eosinophils # (auto) 0.05 K/uL (0-0.5); Eosinophils % (auto) 0.3 %; Hematocrit (blood only) 30.1 % (42-52); Hemoglobin 8.5 g/dL (14.0-18.0); Immature Granulocytes # (auto) 0.03 K/uL (0.00-0.02); Immature Granulocytes % (auto) 0.2 %; Lymphocytes # (auto) 1.47 K/uL (1.2-3.4); Lymphocytes % (auto) 8.2 %; Mean Corpuscular Hemoglobin 21.7 pg (25-34); Mean Corpuscular Hgb Conc 28.2 g/dL (32-36); Mean Platelet Volume 8.7 fL (7.4-10.4); Monocytes # (auto) 1.41 K/uL (0.11-0.59); Monocytes % (auto) 7.8 %; Neutrophils # (auto) 15.04 K/uL (1.4-6.5); Neutrophils % (auto) 83.3 %; Platelet Count 347 K/uL (130-400); RDW Coefficient of Variation 17.6 % (11.5-14.5); RDW Standard Deviation 49.6 fL (36.4-46.3); Red Blood Count 3.91 M/uL (4.7-6.1); White Blood Count 18.03 K/uL (4.8-10.8)
[2021-09-08 07:25] LABS: Albumin Globulin Ratio 1.5 (0.9-2); Albumin Level 3.2 gm/dl (3.4-5.0); BUN Creatinine Ratio 15.2 (10-20); Bilirubin,Total 1.1 mg/dl (0.2-1.0); Calcium 8.9 mg/dl (8.5-10.1); Creatinine Clr Calc Pharmacy 109.1 ml/min; Est GFR (African American) 117.2 ml/min; Est GFR (Non-African American) 101.1 ml/min; Globulin 2.2 gm/dl (2.5-4.0); Potassium 3.8 mmol/L (3.5-5.1); Total Protein 5.4 gm/dl (6.0-8.3)
[2021-09-08] MEDS: FAMOTIDINE 20 MG in SYRINGE 3 ML IV SCH ×2 (07:47→21:12)
[2021-09-08] MEDS: FOLIC ACID 1 MG in SYRINGE 9.8 ML IV SCH (07:48)
[2021-09-08] MEDS: NICOTINE 21 MG/24 HR TDSY TD SCH (07:49)
[2021-09-08] MEDS: THIAMINE HCL 100 MG TAB PO SCH ×4 (07:49→22:07)
--- NOTE | 2021-09-08 10:12 | Surgery Progress Note ---
Date of Service September 08, 2021 Assessment & Plan (1) Gastric ulcer: Plan: POD#1 ex lap with repair of gastric ulcer + abdominal washout WBC 18(19); HR 90-100s, afebrile Remains on IV abx Continue NGT...may consider contrast study in next couple of days Continue BRITNEY drain Hernandez okay for d/c from our standpoint Out of bed as tolerates Pt seen/examined with Dr. Randall Admission and Anticipated Discharge Date Admission Date: September 07, 2021 Subjective Patient sitting up in chair. Has some R sided pain with deep breaths, but otherwise doing well. Physical Exam Physical Exam: awake/alert, sitting up in chair. no distress Gastrointestinal (Abdomen): Inspection/Auscultation: + abdominal surgical incision (c/d/i) Percussion/Palpation: abdomen soft BRITNEY drain cloudy serous output Results & Data ([facility]) Vital Signs (Past 12 Hours) Vital Signs Temp Pulse Pulse Resp BP Pulse Ox 09/08/21 07:40 37.0 C 105 H 18 145/82 H 97 09/08/21 04:00 36.8 C 91 H 18 141/81 H 95 09/07/21 23:30 36.5 C 105 H 20 133/76 96 09/07/21 22:18 109 H PG Care Time/CCT Total # of Minutes Spent Total Time Spent with Patient: Total time spent is greater than 50% in coordination of care (as documented) at patient's floor/unit and/or counseling patient: Coding Level of Care Code None Diagnoses Gastric ulcer K25.9
--- NOTE | 2021-09-08 14:16 | Hospitalist Progress Note ---
Date of Service September 08, 2021 Assessment & Plan (1) Gastric ulcer: Plan: Ravi is a 56-year-old male with a past medical history of MS on no medications, anxiety/depression and alcohol abuse who presents with several weeks of abdominal pain severely worsened since 11 PM evening of admission. Perforated gastric ulcer CTA/P: Free air in the abdomen, perforated gastric ulcer Ethyl alcohol 17.3 mg/deciliter on admission -09/07/21, taken to OR 2cm prepyloric gastric ulcer perforation with oversewing by Dr. Randall, patient proceeding to OR emergently Zosyn 4.5 g every 8 hours, PPI gtt for 3 days (09/10), then 40 mg iv bid for 4-7 (2) Alcohol abuse: Plan: Patient reports increasing alcohol dependence drinking up to a fifth per day of hard liquor recently gin Patient reports last alcohol free days were last year, has experienced shakes in the past but no seizures or DTs Alcohol 17.3 on admission _Awss scale , not on oral meds at this time due to gi issue - no active signs of withdrawal at this time Thiamine 500 mg x 1, 200 mg 3 times daily, then 100 mg daily protocol Folic acid daily (3) Depression: Plan: Continue venlafaxine 75 mg XR once daily, currently held while n.p.o. (4) Multiple sclerosis: Plan: Patient reports he was diagnosed with this ~10 years ago but has not needed any medications does not have current deficits (5) COPD (chronic obstructive pulmonary disease): Plan: - Endorses history of intermittent wheezing tobacco use 1-2ppd, no formal PFTs/inhaler use/COPD diagnosis - Albuterol PRN Plan: DVT prophylaxis: SCDs, teds make surgical intervention above Diet: N.p.o. Disposition: PCU/ICU pending surgical course and recovery CODE STATUS: Full code Admission and Anticipated Discharge Date Admission Date: September 07, 2021 Subjective pt feels well today, has no flatus, ngt with scant drainage, abdominal pain controlled Review of Systems Review of Systems: Mild distress and fatigue no headache, no visual changes no speech or swallowing issues no chest pain, pressure or palpitations no shortness of breath, cough or wheezes controlled abdominal pain, nausea without vomiting, no flatus no dysuria, hematuria or frequency, has campbell cath in place no focal joint pain or swelling no back pain, CVA tenderness or radicular pain no bruising, bleeding or rashes no focal signs of weakness or numbness or altered sensation no complaints of anxiety or depression.. Physical Exam Physical Exam: The patient appeared well nourished and normally developed. no signs of alcohol withdrawal Vital signs as documented. no tachycardia, mild hypertension Head exam is normocephalic atraumatic, ngt in left nare Neck is without JVD, thyromegaly, or carotid bruits. Lungs are clear to auscultation, no focal loss of breath sounds Cardiac exam, Rhythm is regular.. No murmurs, rubs or gallops. Abdominal exam reveals abscent bowel sounds, wound is dressed and slight distention with little pain Extremities are nonedematous and both pedal pulses are present Neurologic exam is alert and oriented, no focal loss of strength or sensation Skin is without bruises or rashes Psychologically is without concerns for anxiety or depression.. Results & Data Results & Data ([facility]) Vital Signs (Past 12 Hours) Vital Signs Temp Pulse Resp BP Pulse Ox 09/08/21 12:05 99.0 F 100 H 19 152/87 H 97 09/08/21 07:40 98.6 F 105 H 18 145/82 H 97 09/08/21 04:00 98.2 F 91 H 18 141/81 H 95 PG Care Time/CCT Total # of Minutes Spent Total Time Spent with Patient: Total time spent is greater than 50% in coordination of care (as documented) at patient's floor/unit and/or counseling patient: Coding Level of Care Code 73420 Subseq Hosp Care Lvl 2 Diagnoses Gastric ulcer K25.9 Alcohol abuse F10.10 Depression F32.9 Multiple sclerosis G35 COPD (chronic obstructive pulmonary disease) J44.9
[2021-09-08] MEDS: INSULIN GLARGINE SOLOSTAR 100 UNITS/ML 3 ML PEN SC SCH (21:21)
[2021-09-08] MEDS ORDERED: THIAMINE HCL 100 MG in SYRINGE 9 ML IV ONE (22:00)
[2021-09-09] MEDS: INSULIN ASPART PER UNIT SC SCH ×4 (00:20→17:44)
[2021-09-09] MEDS: PANTOprazole 40 MG in DEXTROSE 5% 100 ML IV SCH ×5 (01:35→20:14)
[2021-09-09] MEDS: ACETAMINOPHEN 1,000 MG/100 ML VIAL IV SCH ×3 (01:35→17:50)
[2021-09-09] MEDS: PIPERACILLIN/TAZOBACTAM 3.375 GM in DEXTROSE 5% 100 ML IV SCH ×3 (01:47→18:21)
[2021-09-09 06:13] LABS: Hematocrit (blood only) 29.2 % (42-52); Hemoglobin 8.3 g/dL (14.0-18.0); Mean Corpuscular Hemoglobin 21.8 pg (25-34); Mean Corpuscular Hgb Conc 28.4 g/dL (32-36); Mean Corpuscular Volume 76.6 fL (80-100); Mean Platelet Volume 8.4 fL (7.4-10.4); Platelet Count 338 K/uL (130-400); RDW Coefficient of Variation 17.5 % (11.5-14.5); RDW Standard Deviation 49.6 fL (36.4-46.3); Red Blood Count 3.81 M/uL (4.7-6.1); White Blood Count 13.54 K/uL (4.8-10.8)
[2021-09-09] MEDS: LACTATED RINGER'S 1,000 ML IV SCH ×2 (06:22→14:40)
[2021-09-09 06:34] LABS: Albumin Globulin Ratio 1.3 (0.9-2); BUN Creatinine Ratio 16.4 (10-20); Bilirubin,Total 0.9 mg/dl (0.2-1.0); Calcium 8.7 mg/dl (8.5-10.1); Creatinine Clr Calc Pharmacy 128.6 ml/min; Est GFR (African American) 125.4 ml/min; Est GFR (Non-African American) 108.2 ml/min; Globulin 2.4 gm/dl (2.5-4.0); Potassium 3.6 mmol/L (3.5-5.1); Total Protein 5.4 gm/dl (6.0-8.3)
--- NOTE | 2021-09-09 07:17 | Surgery Progress Note ---
Date of Service September 09, 2021 Assessment & Plan (1) Gastric ulcer: Plan: POD#2 status post Russ patch perforated prepyloric ulcers We will continue with the NG tube in place The patient can be transferred to regular floor if okay with the medical service We will get a contrast study to assess the status of the repair prior to removing the NG tube or the Richie drain POD#1 ex lap with repair of gastric ulcer + abdominal washout WBC 18(19); HR 90-100s, afebrile Remains on IV abx Continue NGT...may consider contrast study in next couple of days Continue BRITNEY drain Hernandez okay for d/c from our standpoint Out of bed as tolerates Pt seen/examined with Dr. Randall Admission and Anticipated Discharge Date Admission Date: September 07, 2021 Subjective Overall feels well apparently the NG tube fell out last night and was reinserted by the nurses The patient has been out of bed he is calm there is no evidence of DTs Physical Exam Physical Exam: Alert coherent lying in bed comfortable The abdomen is softly distended dressing on the incision is dry Right upper quadrant Richie drain serous fluid continues to be drained this is all related to the abdominal washout that we had and the excess fluid that was in the abdomen Results & Data ([facility]) Vital Signs (Past 12 Hours) Vital Signs Temp Pulse Pulse Resp BP Pulse Ox 09/09/21 03:40 36.8 C 92 H 20 145/80 H 94 09/08/21 23:34 36.7 C 104 H 20 142/85 H 90 09/08/21 22:20 103 H 09/08/21 20:06 36.8 C 106 H 16 150/90 H 96 PG Care Time/CCT Total # of Minutes Spent Total Time Spent with Patient: Total time spent is greater than 50% in coordination of care (as documented) at patient's floor/unit and/or counseling patient: Coding Level of Care Code None Diagnoses Gastric ulcer K25.9
--- NOTE | 2021-09-09 07:55 | Hospitalist Progress Note ---
Date of Service September 09, 2021 Assessment & Plan (1) Gastric ulcer: Plan: Ravi is a 56-year-old male with a past medical history of MS on no medications, anxiety/depression and alcohol abuse who presents with several weeks of abdominal pain severely worsened since 11 PM evening of admission. Perforated gastric ulcer CTA/P: Free air in the abdomen, perforated gastric ulcer Ethyl alcohol 17.3 mg/deciliter on admission -09/07/21, taken to OR 2cm prepyloric gastric ulcer perforation with oversewing by Dr. Randall, patient proceeding to OR emergently Zosyn 4.5 g every 8 hours, added caspofungin for yeast species seen not albicans PPI gtt for 3 days (09/10), then 40 mg iv bid for 4-7 (2) Alcohol abuse: Plan: Patient reports increasing alcohol dependence drinking up to a fifth per day of hard liquor recently gin Patient reports last alcohol free days were last year, has experienced shakes in the past but no seizures or DTs Alcohol 17.3 on admission _Awss scale , starting gabapentin with small sip - no active signs of withdrawal at this time Thiamine 500 mg x 1, 200 mg 3 times daily, then 100 mg daily protocol Folic acid daily with hypertension consider if part of withdrawal, prn clonidine (3) Depression: Plan: Continue venlafaxine 75 mg XR once daily, with small sip of water (4) Multiple sclerosis: Plan: Patient reports he was diagnosed with this ~10 years ago but has not needed any medications does not have current deficits (5) COPD (chronic obstructive pulmonary disease): Plan: - Endorses history of intermittent wheezing tobacco use 1-2ppd, no formal PFTs/inhaler use/COPD diagnosis - Albuterol PRN Plan: DVT prophylaxis: SCDs, teds make surgical intervention above Diet: N.p.o. Disposition: PCU/ICU pending surgical course and recovery CODE STATUS: Full code Admission and Anticipated Discharge Date Admission Date: September 07, 2021 Subjective pt states he feels improved today almost willing himself to feel better, less pain still no flatus culture of abdomen fluid intra op shows ran not albicans, started on caspofungin WBC did decrease today Review of Systems Review of Systems: Moderate distress and fatigue no headache, no visual changes no speech or swallowing issues no chest pain, pressure or palpitations no shortness of breath, cough or wheezes post op appropriate abdominal pain, no nausea or vomiting,does have constipation no dysuria, hematuria or frequency, has campbell will remove no focal joint pain or swelling no back pain, CVA tenderness or radicular pain no bruising, bleeding or rashes no focal signs of weakness or numbness or altered sensation no complaints of anxiety or depression.. Physical Exam Physical Exam: The patient appeared well nourished and normally developed. no active signs of alcohol withdrawal Vital signs as documented. slight hypertension and tachycardia, maybe post op pain Head exam is normocephalic atraumatic Neck is without JVD, thyromegaly, or carotid bruits. Lungs are clear to auscultation, no focal loss of breath sounds Cardiac exam, Rhythm is regular.. No murmurs, rubs or gallops. Abdominal exam reveals absent bowel sounds, soft non tender, no masses Extremities are nonedematous and both pedal pulses are present Neurologic exam is alert and oriented, no focal loss of strength or sensation, no tremor Skin is without bruises or rashes except for surgical incision and drains Psychologically is without concerns for anxiety or depression.. Results & Data Results & Data ([facility]) Vital Signs (Past 12 Hours) Vital Signs Temp Pulse Pulse Resp BP Pulse Ox 09/09/21 07:37 99.7 F H 101 H 20 173/95 H 95 09/09/21 03:40 98.2 F 92 H 20 145/80 H 94 09/08/21 23:34 98.1 F 104 H 20 142/85 H 90 09/08/21 22:20 103 H 09/08/21 20:06 98.2 F 106 H 16 150/90 H 96 PG Care Time/CCT Total # of Minutes Spent Total Time Spent with Patient: Total time spent is greater than 50% in coordination of care (as documented) at patient's floor/unit and/or counseling patient: Coding Level of Care Code 23874 Subseq Hosp Care Lvl 3 Diagnoses Gastric ulcer K25.9 Alcohol abuse F10.10 Depression F32.9 Multiple sclerosis G35 COPD (chronic obstructive pulmonary disease) J44.9
--- NOTE | 2021-09-09 08:39 | XRay Report ---
KUB HISTORY: ng tube placement COMPARISON: None. FINDINGS: Nasogastric tube terminates in the stomach. Midline skin veronica are noted. Nonspecific pun ctate calcification within the right midabdomen. No renal calculi. No ureteral calculi. Calcificatio ns in the deep pelvis likely represent phleboliths. There is a surgical drain within the right upper quadrant. No pneumoperitoneum or pneumatosis. IMPRESSION: 1. Nasogastric tube terminates in the stomach. 2. Interval postoperative changes as described above. ACT 112: Negative or not required by law. Electronically signed by: Salvador Myers M.D. 09/09/2021 8:37 AM
[2021-09-09] MEDS: NICOTINE 21 MG/24 HR TDSY TD SCH (10:18)
[2021-09-09] MEDS: FOLIC ACID 1 MG in SYRINGE 9.8 ML IV SCH (10:19)
[2021-09-09] MEDS: FAMOTIDINE 20 MG in SYRINGE 3 ML IV SCH ×2 (10:20→20:15)
[2021-09-09] MEDS: VENLAFAXINE HCL XR 75 MG CAPXR PO SCH (10:21)
[2021-09-09] MEDS: THIAMINE HCL 100 MG in SYRINGE 9 ML IV SCH (10:21)
[2021-09-09] MEDS ORDERED: CASPOFUNGIN 70 MG in SODIUM CHLORIDE 0.9% 250 ML IV ONE ×2 (11:00→14:00)
[2021-09-09] MEDS ORDERED: cloNIDine HCL 0.1 MG TAB PO PRN (12:25)
[2021-09-09] MEDS ORDERED: Nursing to Pharmacy Communication SCH (12:30)
[2021-09-09] MEDS ORDERED: GABAPENTIN 800MG ALCOHOL WITHDRAWAL LOAD PO ONE (12:51)
[2021-09-09] MEDS ORDERED: GABAPENTIN 400 MG CAP PO ONE (13:00)
--- NOTE | 2021-09-09 16:36 | Hospitalist Progress Note ---
Date of Service September 09, 2021 Assessment & Plan (1) Gastric ulcer: Plan: Ravi is a 56-year-old male with a past medical history of MS on no medications, anxiety/depression and alcohol abuse who presents with several weeks of abdominal pain severely worsened since 11 PM evening of admission. Perforated gastric ulcer CTA/P: Free air in the abdomen, perforated gastric ulcer Ethyl alcohol 17.3 mg/deciliter on admission -09/07/21, taken to OR 2cm prepyloric gastric ulcer perforation with oversewing by Dr. Randall, patient proceeding to OR emergently Zosyn 4.5 g every 8 hours, added caspofungin for yeast species seen not albicans being managed for (Acute) (local) peritonitis PPI gtt for 3 days (09/10), then 40 mg iv bid for 4-7 (2) Alcohol abuse: Plan: Patient reports increasing alcohol dependence drinking up to a fifth per day of hard liquor recently gin Patient reports last alcohol free days were last year, has experienced shakes in the past but no seizures or DTs Alcohol 17.3 on admission _Awss scale , starting gabapentin with small sip - no active signs of withdrawal at this time Thiamine 500 mg x 1, 200 mg 3 times daily, then 100 mg daily protocol Folic acid daily with hypertension consider if part of withdrawal, prn clonidine (3) Depression: Plan: Continue venlafaxine 75 mg XR once daily, with small sip of water (4) Multiple sclerosis: Plan: Patient reports he was diagnosed with this ~10 years ago but has not needed any medications does not have current deficits (5) COPD (chronic obstructive pulmonary disease): Plan: - Endorses history of intermittent wheezing tobacco use 1-2ppd, no formal PFTs/inhaler use/COPD diagnosis - Albuterol PRN Plan: DVT prophylaxis: SCDs, teds make surgical intervention above Diet: N.p.o. Disposition: PCU/ICU pending surgical course and recovery CODE STATUS: Full code Admission and Anticipated Discharge Date Admission Date: September 07, 2021 Results & Data Results & Data ([facility]) Vital Signs (Past 12 Hours) Vital Signs Temp Pulse Pulse Resp BP Pulse Ox 09/09/21 16:08 99.1 F 96 H 18 155/83 H 98 09/09/21 15:23 94 H 09/09/21 12:28 98.8 F 99 H 19 155/92 H 97 09/09/21 08:00 94 H 09/09/21 07:37 99.7 F H 101 H 20 173/95 H 95 PG Care Time/CCT Total # of Minutes Spent Total Time Spent with Patient: Total time spent is greater than 50% in coordination of care (as documented) at patient's floor/unit and/or counseling patient: Coding Level of Care Code None Diagnoses Gastric ulcer K25.9 Alcohol abuse F10.10 Depression F32.9 Multiple sclerosis G35 COPD (chronic obstructive pulmonary disease) J44.9
[2021-09-09] MEDS: GABAPENTIN 400 MG CAP PO SCH (20:16)
[2021-09-09] MEDS: INSULIN GLARGINE SOLOSTAR 100 UNITS/ML 3 ML PEN SC SCH (20:27)
[2021-09-10] MEDS: LACTATED RINGER'S 1,000 ML IV SCH ×3 (00:15→17:13)
[2021-09-10] MEDS: INSULIN ASPART PER UNIT SC SCH ×4 (00:15→18:35)
[2021-09-10] MEDS: ACETAMINOPHEN 1,000 MG/100 ML VIAL IV SCH (00:44)
[2021-09-10] MEDS: GABAPENTIN 400 MG CAP PO SCH ×3 (00:45→17:14)
[2021-09-10] MEDS: PANTOprazole 40 MG in DEXTROSE 5% 100 ML IV SCH ×5 (01:12→21:51)
[2021-09-10] MEDS: PIPERACILLIN/TAZOBACTAM 3.375 GM in DEXTROSE 5% 100 ML IV SCH ×3 (03:17→17:13)
--- NOTE | 2021-09-10 06:48 | Surgery Progress Note ---
Date of Service September 10, 2021 Assessment & Plan (1) Gastric ulcer: Plan: POD#3 At this point we will leave the NG tube out we will plan to get a contrast study tomorrow the next day before starting oral intake making sure that the repair is intact We will need to be continued on Protonix possibly have GI service see him before discharge so they can arrange for follow-up EGD to assess the healing of the ulcer I suspect within 6 weeks or so From my point of view the patient can be transferred to a regular floor when okay with the medical service POD#2 status post Russ patch perforated prepyloric ulcers We will continue with the NG tube in place The patient can be transferred to regular floor if okay with the medical service We will get a contrast study to assess the status of the repair prior to removing the NG tube or the Richie drain POD#1 ex lap with repair of gastric ulcer + abdominal washout WBC 18(19); HR 90-100s, afebrile Remains on IV abx Continue NGT...may consider contrast study in next couple of days Continue BRITNEY drain Hernandez okay for d/c from our standpoint Out of bed as tolerates Pt seen/examined with Dr. Randall Admission and Anticipated Discharge Date Admission Date: September 07, 2021 Subjective Overall feels well minimal abdominal discomfort start passing some flatus States during the night he had a vivid dream that tubes were pulled out of him and he pulled his NG tube out The nurses called me this morning regarding this an appropriate decision was made by her not to reinsert the NG tube until checked with the surgeon Physical Exam Physical Exam: Alert coherent resting comfortable The abdomen is softly distended nontender The Richie drainage subhepatic along the operative site the drainage is clearing up its more serous less cloudy Abdominal dressings intact Results & Data ([facility]) Vital Signs (Past 12 Hours) Vital Signs Temp Pulse Pulse Resp BP Pulse Ox 09/10/21 04:19 36.6 C 88 18 177/99 H 95 09/09/21 23:00 87 09/09/21 22:42 36.8 C 91 H 20 155/96 H 93 09/09/21 19:24 37.3 C 92 H 22 162/95 H 94 PG Care Time/CCT Total # of Minutes Spent Total Time Spent with Patient: Total time spent is greater than 50% in coordination of care (as documented) at patient's floor/unit and/or counseling patient: Coding Level of Care Code None Diagnoses Gastric ulcer K25.9
[2021-09-10 07:47] LABS: Albumin Globulin Ratio 1.2 (0.9-2); Albumin Level 2.9 gm/dl (3.4-5.0); BUN Creatinine Ratio 15.3 (10-20); Bilirubin,Total 0.9 mg/dl (0.2-1.0); Calcium 7.6 mg/dl (8.5-10.1); Creatinine Clr Calc Pharmacy 119.7 ml/min; Est GFR (African American) 121.7 ml/min; Globulin 2.4 gm/dl (2.5-4.0); Potassium 3.3 mmol/L (3.5-5.1); Total Protein 5.3 gm/dl (6.0-8.3)
[2021-09-10] MEDS: NICOTINE 21 MG/24 HR TDSY TD SCH (08:01)
[2021-09-10 08:15] LABS: Hematocrit (blood only) 29.8 % (42-52); Hemoglobin 8.4 g/dL (14.0-18.0); Mean Corpuscular Hemoglobin 21.3 pg (25-34); Mean Corpuscular Hgb Conc 28.2 g/dL (32-36); Mean Corpuscular Volume 75.6 fL (80-100); Mean Platelet Volume 8.7 fL (7.4-10.4); Platelet Count 378 K/uL (130-400); RDW Coefficient of Variation 16.9 % (11.5-14.5); Red Blood Count 3.94 M/uL (4.7-6.1)
[2021-09-10] MEDS: THIAMINE HCL 100 MG in SYRINGE 9 ML IV SCH (09:35)
[2021-09-10] MEDS: FOLIC ACID 1 MG in SYRINGE 9.8 ML IV SCH (09:35)
[2021-09-10] MEDS: FAMOTIDINE 20 MG in SYRINGE 3 ML IV SCH ×2 (09:36→21:50)
[2021-09-10] MEDS: VENLAFAXINE HCL XR 75 MG CAPXR PO SCH (09:37)
[2021-09-10] MEDS: CASPOFUNGIN 50 MG in SODIUM CHLORIDE 0.9% 250 ML IV SCH (10:44)
--- NOTE | 2021-09-10 16:16 | Hospitalist Progress Note ---
Date of Service September 10, 2021 Assessment & Plan (1) Gastric ulcer: Plan: Ravi is a 56-year-old male with a past medical history of MS on no medications, anxiety/depression and alcohol abuse who presents with several weeks of abdominal pain severely worsened since 11 PM evening of admission. Perforated gastric ulcer CTA/P: Free air in the abdomen, perforated gastric ulcer Ethyl alcohol 17.3 mg/deciliter on admission -09/07/21, taken to OR 2cm prepyloric gastric ulcer perforation with oversewing by Dr. Randall, patient proceeding to OR emergently Zosyn 4.5 g every 8 hours, added caspofungin for yeast species seen not albicans being managed for (Acute) (local) peritonitis We will consult infectious disease to help us determine whether this fungal culture needs to be treated and the duration of treatment PPI gtt for 3 days (09/10), then 40 mg iv bid for 4-7 (2) Alcohol abuse: Plan: Patient reports increasing alcohol dependence drinking up to a fifth per day of hard liquor recently gin Patient reports last alcohol free days were last year, has experienced shakes in the past but no seizures or DTs Alcohol 17.3 on admission _Awss scale , starting gabapentin with small sip - no active signs of withdrawal at this time Thiamine 500 mg x 1, 200 mg 3 times daily, then 100 mg daily protocol Folic acid daily with hypertension consider if part of withdrawal, prn clonidine (3) Depression: Plan: Continue venlafaxine 75 mg XR once daily, with small sip of water (4) Multiple sclerosis: Plan: Patient reports he was diagnosed with this ~10 years ago but has not needed any medications does not have current deficits (5) COPD (chronic obstructive pulmonary disease): Plan: - Endorses history of intermittent wheezing tobacco use 1-2ppd, no formal PFTs/inhaler use/COPD diagnosis - Albuterol PRN Plan: DVT prophylaxis: SCDs, teds make surgical intervention above Diet: Allowing small sips and p.o. meds Disposition: PCU/ICU pending surgical course and recovery CODE STATUS: Full code Admission and Anticipated Discharge Date Admission Date: September 07, 2021 Subjective Overall feels well minimal abdominal discomfort start passing some flatus having small sips of medications States during the night he had a vivid dream that tubes were pulled out of him and he pulled his NG tube out The patient has fungal culture and the fact that we will have a [facility] infectious disease consultation to determine duration of treatment. Review of Systems Review of Systems: Moderate distress and fatigue no headache, no visual changes no speech or swallowing issues no chest pain, pressure or palpitations no shortness of breath, cough or wheezes post op appropriate abdominal pain, no nausea or vomiting,does have flatus but still with constipation no dysuria, hematuria or frequency, has campbell will remove no focal joint pain or swelling no back pain, CVA tenderness or radicular pain no bruising, bleeding or rashes no focal signs of weakness or numbness or altered sensation no complaints of anxiety or depression.. Physical Exam Physical Exam: The patient appeared well nourished and normally developed. no active signs of alcohol withdrawal Vital signs as documented. slight hypertension and tachycardia, maybe post op pain Head exam is normocephalic atraumatic Neck is without JVD, thyromegaly, or carotid bruits. Lungs are clear to auscultation, no focal loss of breath sounds Cardiac exam, Rhythm is regular.. No murmurs, rubs or gallops. Abdominal exam reveals absent bowel sounds, soft non tender, no masses Extremities are nonedematous and both pedal pulses are present Neurologic exam is alert and oriented, no focal loss of strength or sensation, no tremor Skin is without bruises or rashes except for surgical incision and drains Psychologically is without concerns for anxiety or depression.. Results & Data Results & Data ([facility]) Vital Signs (Past 12 Hours) Vital Signs Temp Pulse Pulse Resp BP Pulse Ox 09/10/21 15:37 93 H 09/10/21 12:00 99.7 F H 95 H 18 159/87 H 97 09/10/21 08:00 86 09/10/21 04:19 97.9 F 88 18 177/99 H 95 PG Care Time/CCT Total # of Minutes Spent Total Time Spent with Patient: Total time spent is greater than 50% in coordination of care (as documented) at patient's floor/unit and/or counseling patient: Coding Level of Care Code 56013 Subseq Hosp Care Lvl 2 Diagnoses Gastric ulcer K25.9 Alcohol abuse F10.10 Depression F32.9 Multiple sclerosis G35 COPD (chronic obstructive pulmonary disease) J44.9
[2021-09-10] MEDS: INSULIN GLARGINE SOLOSTAR 100 UNITS/ML 3 ML PEN SC SCH (21:50)
[2021-09-11] MEDS: INSULIN ASPART PER UNIT SC SCH ×4 (00:30→17:12)
[2021-09-11] MEDS: LACTATED RINGER'S 1,000 ML IV SCH ×2 (01:31→08:56)
[2021-09-11] MEDS: PIPERACILLIN/TAZOBACTAM 3.375 GM in DEXTROSE 5% 100 ML IV SCH ×3 (01:32→18:13)
[2021-09-11] MEDS: GABAPENTIN 400 MG CAP PO SCH ×2 (01:32→14:05)
[2021-09-11] MEDS: PANTOprazole 40 MG in DEXTROSE 5% 100 ML IV SCH ×3 (02:47→14:03)
--- NOTE | 2021-09-11 06:45 | Surgery Progress Note ---
Date of Service September 11, 2021 Assessment & Plan (1) Gastric ulcer: Plan: POD#4 At this point will order it Gastrografin contrast study to visualize and see if the repair of the gastric perforation is intact and if so we can start him on clear liquids POD#3 At this point we will leave the NG tube out we will plan to get a contrast study tomorrow the next day before starting oral intake making sure that the repair is intact We will need to be continued on Protonix possibly have GI service see him before discharge so they can arrange for follow-up EGD to assess the healing of the ulcer I suspect within 6 weeks or so From my point of view the patient can be transferred to a regular floor when okay with the medical service POD#2 status post Russ patch perforated prepyloric ulcers We will continue with the NG tube in place The patient can be transferred to regular floor if okay with the medical service We will get a contrast study to assess the status of the repair prior to removing the NG tube or the Richie drain POD#1 ex lap with repair of gastric ulcer + abdominal washout WBC 18(19); HR 90-100s, afebrile Remains on IV abx Continue NGT...may consider contrast study in next couple of days Continue BRITNEY drain Hernandez okay for d/c from our standpoint Out of bed as tolerates Pt seen/examined with Dr. Randall Admission and Anticipated Discharge Date Admission Date: September 07, 2021 Subjective No major issues overall feels well states had multiple bowel movements no real abdominal pain Physical Exam Physical Exam: Alert coherent resting comfortably The sclerae nonicteric Oral mucosa moist The abdomen is soft prominent but as preop the incision is free of any drainage the Mary drain was removed yesterday The Richie drain right upper quadrant along the inferior aspect of the liver near the gastric repair serous fluid No calf tenderness or pedal edema Results & Data ([facility]) Vital Signs (Past 12 Hours) Vital Signs Temp Pulse Pulse Resp BP Pulse Ox 09/11/21 04:34 36.8 C 77 18 156/87 H 98 09/11/21 00:05 36.6 C 83 18 155/95 H 98 09/10/21 23:00 91 H 09/10/21 19:14 37.2 C 92 H 19 160/82 H 98 PG Care Time/CCT Total # of Minutes Spent Total Time Spent with Patient: Total time spent is greater than 50% in coordination of care (as documented) at patient's floor/unit and/or counseling patient: Coding Level of Care Code None Diagnoses Gastric ulcer K25.9
[2021-09-11 06:53] LABS: Hematocrit (blood only) 29.1 % (42-52); Hemoglobin 8.4 g/dL (14.0-18.0); Mean Corpuscular Hemoglobin 21.6 pg (25-34); Mean Corpuscular Hgb Conc 28.9 g/dL (32-36); Mean Corpuscular Volume 74.8 fL (80-100); Mean Platelet Volume 8.5 fL (7.4-10.4); Platelet Count 370 K/uL (130-400); RDW Coefficient of Variation 16.9 % (11.5-14.5); RDW Standard Deviation 46.9 fL (36.4-46.3); Red Blood Count 3.89 M/uL (4.7-6.1); White Blood Count 7.81 K/uL (4.8-10.8)
[2021-09-11 07:10] LABS: Albumin Globulin Ratio 1.2 (0.9-2); Albumin Level 2.9 gm/dl (3.4-5.0); BUN Creatinine Ratio 18.2 (10-20); Bilirubin,Total 0.8 mg/dl (0.2-1.0); Calcium 8.1 mg/dl (8.5-10.1); Creatinine Clr Calc Pharmacy 130.6 ml/min; Est GFR (African American) 126.1 ml/min; Est GFR (Non-African American) 108.8 ml/min; Globulin 2.4 gm/dl (2.5-4.0); Potassium 3.3 mmol/L (3.5-5.1); Total Protein 5.3 gm/dl (6.0-8.3)
[2021-09-11] MEDS: FAMOTIDINE 20 MG in SYRINGE 3 ML IV SCH (08:53)
[2021-09-11] MEDS: FOLIC ACID 1 MG in SYRINGE 9.8 ML IV SCH (08:53)
[2021-09-11] MEDS: THIAMINE HCL 100 MG in SYRINGE 9 ML IV SCH (08:54)
[2021-09-11] MEDS: NICOTINE 21 MG/24 HR TDSY TD SCH (08:55)
[2021-09-11] MEDS: VENLAFAXINE HCL XR 75 MG CAPXR PO SCH ×2 (08:56→21:10)
--- NOTE | 2021-09-11 10:05 | Fluoroscopy Report ---
SINGLE CONTRAST UPPER GI SERIES CLINICAL HISTORY: Gastric ulcer status post surgical repair. COMPARISON STUDY: Abdominal CT dated 09/07/2021. TECHNIQUE: A single contrast upper GI series was performed utilizing approximately 150 cc of Optiray 300. Spot images of the esophagus and stomach were obtained in multiple obliquities. FINDINGS: The patient swallowed contrast without difficulty. The esophagus is structurally normal without evide nce of intrinsic or extrinsic mass. There is mild dysmotility in the mid to distal esophagus. No mary roesophageal reflux was observed during the examination. The gastroesophageal junction distends maxmio lly. Midline skin clips are noted. The stomach is normal in configuration. Gastric fold thickening suggest s gastritis. There is no evidence of mass lesion on this single contrast examination. There is no jorge dence of leakage/extraluminal contrast. The duodenal bulb and sweep are normal in configuration. Fluoroscopy time: 1.1 minutes Fluoroscopic images: 15 IMPRESSION: 1. There is no evidence of extraluminal contrast/leakage from the stomach. 2. Esophageal dysmotility. 3. Suspect gastritis. ACT 112: Negative or not required by law. Electronically signed by: Leroy Padron M.D. 09/11/2021 10:04 AM
[2021-09-11] MEDS: CASPOFUNGIN 50 MG in SODIUM CHLORIDE 0.9% 250 ML IV SCH (14:04)
--- NOTE | 2021-09-11 14:36 | Hospitalist Progress Note ---
Date of Service September 11, 2021 Assessment & Plan (1) Gastric ulcer: Plan: Ravi is a 56-year-old male with a past medical history of MS on no medications, anxiety/depression and alcohol abuse who presents with several weeks of abdominal pain severely worsened since 11 PM evening of admission. Perforated gastric ulcer CTA/P: Free air in the abdomen, perforated gastric ulcer Ethyl alcohol 17.3 mg/deciliter on admission -09/07/21, taken to OR 2cm prepyloric gastric ulcer perforation with oversewing by Dr. Randall, patient proceeding to OR emergently Zosyn 4.5 g every 8 hours, added caspofungin for yeast species seen not albicans being managed for (Acute) (local) peritonitis PPI gtt for 3 days (09/10), then 40 mg iv bid for 4-7 - Plan for ID consult today. Hopefully able to move to PO abx and antifungals with their approval. (2) Alcohol abuse: Plan: Patient reports increasing alcohol dependence drinking up to a fifth per day of hard liquor recently gin Patient reports last alcohol free days were last year, has experienced shakes in the past but no seizures or DTs Alcohol 17.3 on admission _Awss scale , starting gabapentin - no active signs of withdrawal at this time Thiamine 500 mg x 1, 200 mg 3 times daily, then 100 mg daily protocol Folic acid daily (3) Depression: Plan: Continue venlafaxine 75 mg XR once daily (4) Multiple sclerosis: Plan: Patient reports he was diagnosed with this ~10 years ago but has not needed any medications does not have current deficits (5) COPD (chronic obstructive pulmonary disease): Plan: - Endorses history of intermittent wheezing tobacco use 1-2ppd, no formal PFTs/inhaler use/COPD diagnosis - Albuterol PRN Plan: DVT prophylaxis: Lovenox 40 mg SQ daily Admission and Anticipated Discharge Date Admission Date: September 07, 2021 Subjective Doing well today. He has some soreness on the lateral ribs because he is using his central abdominal muscles less. He is having some diarrhea from the antibiotics, but definitely moving his bowels. No nausea. Appetite is good. Reports no fevers/chills, chest pain, shortness of breath, abdominal pain, nausea, or vomiting. Physical Exam Constitutional: WD/WN, vitals as above Eyes: EOM intact bilaterally; no conjunctival abnormality ENMT: external ear and nose normal, oropharynx normal Neck: trachea midline, no thyromegaly normal visual inspection Respiratory: normal respiratory effort, lungs clear to auscultation no respiratory distress Cardiovascular: RRR, no murmur, no edema Gastrointestinal (Abdomen): Inspection/Auscultation: + abdominal surgical incision; abdomen not distended Musculoskeletal: no cyanosis or clubbing, extremities motor strength 5/5 Skin: no rashes, warm and dry Neurologic: moves all extremities and awake Psychiatric: Orientation: alert, oriented to person and cooperative Results & Data Results & Data ([facility]) Vital Signs (Past 12 Hours) Vital Signs Temp Pulse Pulse Resp BP Pulse Ox 09/11/21 11:03 36.5 C 96 H 18 160/83 H 99 09/11/21 08:00 82 09/11/21 07:33 36.9 C 85 18 159/90 H 99 09/11/21 04:34 36.8 C 77 18 156/87 H 98 PG Care Time/CCT Total # of Minutes Spent Total Time Spent with Patient: Total time spent is greater than 50% in coordination of care (as documented) at patient's floor/unit and/or counseling patient: Coding Level of Care Code 51537 Subseq Hosp Care Lvl 2 Diagnoses Gastric ulcer K25.9 Alcohol abuse F10.10 Depression F32.9 Multiple sclerosis G35 COPD (chronic obstructive pulmonary disease) J44.9
[2021-09-11] MEDS: FAMOTIDINE 20 MG TAB PO SCH (20:58)
[2021-09-11] MEDS: INSULIN GLARGINE SOLOSTAR 100 UNITS/ML 3 ML PEN SC SCH (20:58)
[2021-09-11] MEDS: PANTOprazole 40 MG in SYRINGE 0 ML IV SCH (21:10)
[2021-09-12] MEDS: INSULIN ASPART PER UNIT SC SCH ×5 (00:04→21:06)
[2021-09-12] MEDS: GABAPENTIN 400 MG CAP PO SCH (00:13)
[2021-09-12] MEDS ORDERED: Nursing to Pharmacy Communication SCH (00:15)
[2021-09-12] MEDS: PIPERACILLIN/TAZOBACTAM 3.375 GM in DEXTROSE 5% 100 ML IV SCH ×3 (02:21→17:49)
[2021-09-12] MEDS: ACETAMINOPHEN 325 MG TAB PO PRN ×2 (05:14→17:42)
[2021-09-12 06:37] LABS: Hematocrit (blood only) 31.6 % (42-52); Hemoglobin 9.2 g/dL (14.0-18.0); Mean Corpuscular Hemoglobin 21.7 pg (25-34); Mean Corpuscular Hgb Conc 29.1 g/dL (32-36); Mean Corpuscular Volume 74.5 fL (80-100); Mean Platelet Volume 8.6 fL (7.4-10.4); Platelet Count 424 K/uL (130-400); RDW Coefficient of Variation 16.6 % (11.5-14.5); RDW Standard Deviation 45.3 fL (36.4-46.3); Red Blood Count 4.24 M/uL (4.7-6.1); White Blood Count 8.15 K/uL (4.8-10.8)
[2021-09-12 07:01] LABS: BUN Creatinine Ratio 12.9 (10-20); Calcium 8.6 mg/dl (8.5-10.1); Creatinine Clr Calc Pharmacy 104.6 ml/min; Est GFR (African American) 106.7 ml/min; Est GFR (Non-African American) 92.1 ml/min; Phosphorus 4.1 mg/dl (2.5-4.9); Potassium 3.5 mmol/L (3.5-5.1)
[2021-09-12] MEDS: THIAMINE HCL 100 MG TAB PO SCH (10:06)
[2021-09-12] MEDS: FOLIC ACID 1 MG TAB PO SCH (10:06)
[2021-09-12] MEDS: PANTOprazole 40 MG in SYRINGE 0 ML IV SCH ×2 (10:06→21:15)
[2021-09-12] MEDS: FAMOTIDINE 20 MG TAB PO SCH ×2 (10:07→19:46)
[2021-09-12] MEDS: NICOTINE 21 MG/24 HR TDSY TD SCH (10:13)
[2021-09-12] MEDS: CASPOFUNGIN 50 MG in SODIUM CHLORIDE 0.9% 250 ML IV SCH (10:28)
[2021-09-12] MEDS: VENLAFAXINE HCL XR 75 MG CAPXR PO SCH (10:28)
--- NOTE | 2021-09-12 11:50 | Gastrointestinal Consultation ---
Date of Consultation September 12, 2021 Assessment & Plan (1) Alcohol abuse: (2) Gastric ulcer: 1. Outpatient EGD in approximately 6 weeks. 2. Continue Pantoprazole 40 mg BID upon discharge. 3. Continue diet advancement per surgery recommendations. 4. Agree with plan for either inpt/outpt alcohol treatment. 5. Supportive care per primary team. Supervising Physician Co-Signing Physician Notes I personally evaluated the patient and agree with the findings as documented by KRISTIN James Exam: Constitutional: WD/WN, vitals as above General: EOM intact bilaterally Neck: normal visual inspection Respiratory: normal respiratory effort, lungs clear to auscultation Cardiovascular: RRR, no murmur, no edema Gastrointestinal: abdomendressed s/p surgery, nondistended, soft, mild umbilical/epigastric tenderness, no hepatosplenomegaly Musculoskeletal: no cyanosis, head normal to inspection Skin: no rashes, warm and dry Neurologic: moves all extremities Psychiatric: A and O x3, euthymic affect History of Present Illness Reason for Consultation: Perforated gastric ulcer Requesting Physician: Dr. Randall Attending Physician: Aldo Bone History of Present Illness Patient is a 56 y.o. male with a history of ETOH and alcohol abuse as well as anxiety, depression and COPD admitted with an abrupt onset of severe gastric pain on 09/07/21. He is status post ex lap repair of gastric perforation by Dr. Randall. He has a BRITNEY drain intact. Started liquid diet today. Patient was noted to have iron deficiency anemia on arrival with hemoglobin of 9.4, hematocrit 32.8, and MCV 76.5. Found to be hyponatremic with sodium level on 129, likely related to alcohol abuse, and leukocytosis of ~19,000 which has improved with IV antibiotics. He also remains on BID PPI. Prior to admission, the patient endorses consuming approximately a fifth of liquor daily. Also with some reflux symptoms which he treated with antacids intermittently. No consistent use of acid suppressive therapy. Currently, he reports mild incisional pain but no n/v or overt GIB. Allergies Allergy/AdvReac Type Severity Reaction Status Date / Time No Known Allergies Allergy Verified 09/07/21 05:00 Home Medications Medication Instructions Recorded Confirmed Type clonazepam 0.5 mg tablet (Klonopin) 0.5 - 1 mg PO HS #20 tab 05/01/19 Rx Patient History Medical History Anxiety Depression Multiple sclerosis Surgical History H/O exploratory laparotomy (09/07/21) Exploratory Laparotomy and Suture Repair of Perforated Pre Pyloric Gastric Ulcer - Randall Randall MD, FACS abdominal washout 09/07/2021 Family History Other Family history non-contributory Social History Smoking Status: Current every day smoker Tobacco Type: Cigarettes packs per day: 1.5; Do You Dip or Chew Tobacco: No; Hx Alcohol Use: Yes Alcohol type: hard liquor Alcohol Intake Frequency: 4 or More x per/Week Hx Substance Use: No Preferred Language: Macedonian Communication Ability: Effective Valving 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 Required: No Beliefs That Will Affect Care: None marital status: Current Living Situation: Significant Other Other Information That Helps Us Care for You: No Feels Safe at Home: Yes Assistive Devices: None Review of Systems Review of Systems: All systems reviewed & are unremarkable except as noted in HPI & below Physical Exam Constitutional: WD/WN, vitals as above Eyes: EOM intact bilaterally; sclerae not anicteric Respiratory: normal respiratory effort, lungs clear to auscultation Cardiovascular: Rate/Rhythm: regular rate and regular rhythm Gastrointestinal (Abdomen): Inspection/Auscultation: normal bowel sounds large dressing intact with associated BRITNEY drain producing small amount of serous fluid. Psychiatric: A+Ox3, euthymic affect Results & Data ([facility]) Vital Signs (Past 12 Hours) Vital Signs Temp Pulse Resp BP BP Pulse Ox 09/12/21 07:56 36.6 C 84 18 150/85 H 98 09/12/21 04:22 37.2 C 80 18 139/85 97 09/11/21 23:57 37.2 C 83 18 150/92 H 98 Laboratory Results Abnormal lab results 09/11/21 09/11/21 09/12/21 Range/Units 16:24 23:54 06:24 RBC 4.24 L (4.7-6.1) M/uL Hgb 9.2 L (14.0-18.0) g/dL Hct 31.6 L (42-52) % MCV 74.5 L (80-100) fL MCH 21.7 L (25-34) pg MCHC 29.1 L (32-36) g/dL RDW Coeff of [place]ady 16.6 H (11.5-14.5) % Plt Count 424 H (130-400) K/uL Sodium (136-145) mmol/L Glucose (70-99(Fasting)) mg/dl POC Glucose 107 H 122 H (70-99) mg/dl 09/12/21 09/12/21 09/12/21 Range/Units 06:24 07:47 11:07 RBC (4.7-6.1) M/uL Hgb (14.0-18.0) g/dL Hct (42-52) % MCV (80-100) fL MCH (25-34) pg MCHC (32-36) g/dL RDW Coeff of [place] (11.5-14.5) % Plt Count (130-400) K/uL Sodium 134 L (136-145) mmol/L Glucose 124 H (70-99(Fasting)) mg/dl POC Glucose 119 H 106 H (70-99) mg/dl PG Care Time/CCT Total # of Minutes Spent Total Time Spent with Patient: Total time spent is greater than 50% in coordination of care (as documented) at patient's floor/unit and/or counseling patient: Coding Level of Care Code 75097 Initial Inpt Care Lvl 3 Diagnoses Alcohol abuse F10.10 Gastric ulcer K25.9
[2021-09-12] MEDS ORDERED: IRON SUCROSE 200 MG in 0.9 % SODIUM CHLORIDE 100 ML IV ONE (14:00)
--- NOTE | 2021-09-12 14:00 | Hospitalist Progress Note ---
Date of Service September 12, 2021 Assessment & Plan (1) Gastric ulcer: Plan: Perforated gastric ulcer with acute peritonitis. POD #5 s/p exploratory laparotomy with Russ patch repair. s/p Upper GI series without extravasation of contrast. tolerated clears, now on full liquids and tolerating that as well. s/p PPI drip for 3 days (finished AM of 09/11). then 40mg iv bid x 3 days (started PM of 09/11). Remains on IV zosyn and IV caspofungin for peritonitis - see below. appreciate gen surgery recs/management. check H pylori stool ag GI consult completed - will have outpatient EGD in ~6 weeks (2) Peritonitis, acute generalized: Plan: Intra-op peritoneal fluid culture grew ran glabrata. He is day #4 of IV caspofungin. He is day #6 of IV zosyn. He has no evidence of ongoing peritonitis on exam. Appreciate [facility] ID consultation. Plan 7 days of IV zosyn. Plan 10 days of IV caspofungin. If he d/c home soon hopefully can perform once daily anti-fungals outside the hospital - will need SW assistance. (3) Alcohol abuse: Plan: despite such no evidence of etoh withdrawal. completed gabapentin taper. cont thiamine, cont folate. (4) Depression: Plan: Continue venlafaxine 75 mg XR once daily (5) Multiple sclerosis: Plan: Patient reports he was diagnosed with this ~10 years ago but has not needed any medications for such. (6) COPD (chronic obstructive pulmonary disease): Plan: no flare at this time bronchodilators prn (7) Iron deficiency anemia: Plan: severe ferritin = 14.8. likely had smoldering blood loss from his ulcer for weeks-months. will give IV venofer today - start with 200mg x 1. then give IV venofer tomorrow - 300mg as tolerated. (8) Type 2 diabetes mellitus: Plan: Hba1c 8.4% at discharge will use amaryl 1mg daily. poor candidate for metformin due to etoh use. cont lantus-novolog while here. Plan: DVT prophylaxis: Lovenox 40 mg SQ daily extensively updated by phone this evening with surgery's permission I consulted PT/OT Admission and Anticipated Discharge Date Admission Date: September 07, 2021 Subjective patient was sitting in chair doing work on his home computer he feels good mild abdominal pain no vomiting tolerating full liquids having stools - they are loose denies etoh withdrawal symptoms he denies tremors or anxiety hoping for d/c home soon tele wnl overnight Review of Systems Review of Systems: gen - overall feels good, good energy, no fever cv - no chest pain pulm - no dyspnea GI - mild abdominal pain (incisional); no nausea Results & Data Results & Data ([facility]) Vital Signs (Past 12 Hours) Vital Signs Temp Pulse Resp BP BP Pulse Ox 09/12/21 07:56 36.6 C 84 18 150/85 H 98 09/12/21 04:22 37.2 C 80 18 139/85 97 Laboratory Results Laboratory Results - last 24 hr 09/12/21 09/12/21 09/12/21 06:24 06:24 07:47 WBC 8.15 RBC 4.24 L Hgb 9.2 L Hct 31.6 L MCV 74.5 L MCH 21.7 L MCHC 29.1 L RDW Std Deviation 45.3 RDW Coeff of Shady 16.6 H Plt Count 424 H MPV 8.6 Sodium 134 L Potassium 3.5 Chloride 104 Carbon Dioxide 22 Anion Gap 8 BUN 12 Creatinine 0.93 Est Cr Clr Drug Dosing 104.6 Est GFR ( Amer) 106.7 Est GFR (Non-Af Amer) 92.1 BUN/Creatinine Ratio 12.9 Glucose 124 H POC Glucose 119 H Calcium 8.6 Phosphorus 4.1 Magnesium 2.0 Stool H. pylori Ag 09/12/21 09/12/21 09/12/21 11:07 16:09 19:39 WBC RBC Hgb Hct MCV MCH MCHC RDW Std Deviation RDW Coeff of Shady Plt Count MPV Sodium Potassium Chloride Carbon Dioxide Anion Gap BUN Creatinine Est Cr Clr Drug Dosing Est GFR ( Amer) Est GFR (Non-Af Amer) BUN/Creatinine Ratio Glucose POC Glucose 106 H 119 H Calcium Phosphorus Magnesium Stool H. pylori Ag Pending 09/12/21 19:55 WBC RBC Hgb Hct MCV MCH MCHC RDW Std Deviation RDW Coeff of Shady Plt Count MPV Sodium Potassium Chloride Carbon Dioxide Anion Gap BUN Creatinine Est Cr Clr Drug Dosing Est GFR ( Amer) Est GFR (Non-Af Amer) BUN/Creatinine Ratio Glucose POC Glucose 126 H Calcium Phosphorus Magnesium Stool H. pylori Ag PG Care Time/CCT Total # of Minutes Spent Total Time Spent with Patient: Total time spent is greater than 50% in coordination of care (as documented) at patient's floor/unit and/or counseling patient: Coding Level of Care Code 65579 Subseq Hosp Care Lvl 3 Diagnoses Gastric ulcer K25.9 Alcohol abuse F10.10 Depression F32.9 Multiple sclerosis G35 COPD (chronic obstructive pulmonary disease) J44.9 Iron deficiency anemia D50.9 Type 2 diabetes mellitus E11.9 Peritonitis, acute generalized K65.0
--- NOTE | 2021-09-12 21:02 | Surgery Progress Note ---
Date of Service September 12, 2021 Late entry Assessment & Plan (1) Gastric ulcer: Plan: POD 5 repair of perforated ulcer keep on full liquids maintain drain on zosyn, caspofungin, protonix consider advancing diet and discharge in next 1-2 days outpatient EGD Admission and Anticipated Discharge Date Admission Date: September 07, 2021 Subjective patient seen earlier this AM tolerating full liquids, minimal pain, ambulating Physical Exam Gastrointestinal (Abdomen): Inspection/Auscultation: + abdominal surgical drain present (serous drainage); abdomen not distended Results & Data ([facility]) Vital Signs (Past 12 Hours) Vital Signs Temp Pulse Pulse Resp BP Pulse Ox 09/12/21 19:06 36.8 C 83 19 162/95 H 96 09/12/21 16:00 85 09/12/21 15:58 36.9 C 84 18 163/93 H 97 09/12/21 14:40 36.7 C 86 154/90 H 99 PG Care Time/CCT Total # of Minutes Spent Total Time Spent with Patient: Total time spent is greater than 50% in coordination of care (as documented) at patient's floor/unit and/or counseling patient: Coding Level of Care Code None Diagnoses Gastric ulcer K25.9
[2021-09-12] MEDS: INSULIN GLARGINE SOLOSTAR 100 UNITS/ML 3 ML PEN SC SCH (21:09)
[2021-09-13] MEDS ORDERED: GABAPENTIN 400 MG CAP PO SCH (01:00)
[2021-09-13] MEDS: PIPERACILLIN/TAZOBACTAM 3.375 GM in DEXTROSE 5% 100 ML IV SCH ×2 (01:24→09:00)
[2021-09-13] MEDS: ACETAMINOPHEN 325 MG TAB PO PRN (01:29)
[2021-09-13 07:19] LABS: Hemoglobin 9.8 g/dL (14.0-18.0); Mean Corpuscular Hemoglobin 21.4 pg (25-34); Mean Corpuscular Hgb Conc 28.8 g/dL (32-36); Mean Corpuscular Volume 74.4 fL (80-100); Mean Platelet Volume 8.8 fL (7.4-10.4); Platelet Count 485 K/uL (130-400); RDW Coefficient of Variation 16.7 % (11.5-14.5); RDW Standard Deviation 45.6 fL (36.4-46.3); Red Blood Count 4.57 M/uL (4.7-6.1); White Blood Count 8.62 K/uL (4.8-10.8)
[2021-09-13 07:35] LABS: BUN Creatinine Ratio 9.4 (10-20); Calcium 8.9 mg/dl (8.5-10.1); Creatinine Clr Calc Pharmacy 114.8 ml/min; Est GFR (African American) 113.7 ml/min; Est GFR (Non-African American) 98.1 ml/min; Potassium 3.6 mmol/L (3.5-5.1)
--- NOTE | 2021-09-13 08:10 | Surgery Progress Note ---
Date of Service September 13, 2021 Assessment & Plan (1) Gastric ulcer: Plan: POD#6 Status post Russ patch perforated pyloric ulcer Contrast study done 2 days ago no leak patient on liquid diet and tolerating it well We will advance to a low fiber diet Leave it up to the medical service regarding discharge timing gastroenterology is on board to see the patient approximately 6 weeks for scope patient is to continue Protonix Instructions were given to him regarding wound care and activity and we will see him back in the office in approximately 1 week Recommended occasional Tylenol for pain control which is so far out now that he probably will not need any He can drive for short distances and do not lift anything heavier than 10 pounds for the next week or so keep in mind that it may take a full 6 weeks to fully recover from surgery All question answered POD 5 repair of perforated ulcer keep on full liquids maintain drain on zosyn, caspofungin, protonix consider advancing diet and discharge in next 1-2 days outpatient EGD Admission and Anticipated Discharge Date Admission Date: September 07, 2021 Subjective Overall is doing very well is tolerating liquid diet no real abdominal discomfort stated during the night he has some pain in the right side where the drain was and apparently the drain was not holding any suction He has moved his bowels Physical Exam Physical Exam: Is alert coherent sitting on side of bed having his breakfast spleen liquid without any issues On examination of 3 asked him to get in bed the abdomen is prominent but is it was normal for him the incision is healing well there is no drainage veronica i ntact The Richie drain in the right upper quadrant not holding suction noticed that it is pulled out about 3-1/2 inches in the black marking is that far from the skin edge Results & Data ([facility]) Vital Signs (Past 12 Hours) Vital Signs Temp Pulse Pulse Resp BP Pulse Ox 09/13/21 07:52 36.7 C 76 16 152/89 H 100 09/13/21 03:53 36.5 C 78 18 144/74 H 98 09/12/21 23:04 36.8 C 78 18 144/73 H 98 09/12/21 22:30 76 PG Care Time/CCT Total # of Minutes Spent Total Time Spent with Patient: Total time spent is greater than 50% in coordination of care (as documented) at patient's floor/unit and/or counseling patient: Coding Level of Care Code None Diagnoses Gastric ulcer K25.9
[2021-09-13] MEDS: INSULIN ASPART PER UNIT SC SCH ×3 (08:50→17:25)
[2021-09-13] MEDS ORDERED: IRON SUCROSE 300 MG in SODIUM CHLORIDE 0.9% 250 ML IV ONE (09:00)
[2021-09-13] MEDS: FAMOTIDINE 20 MG TAB PO SCH (09:03)
[2021-09-13] MEDS: FOLIC ACID 1 MG TAB PO SCH (09:03)
[2021-09-13] MEDS: NICOTINE 21 MG/24 HR TDSY TD SCH (09:03)
[2021-09-13] MEDS: VENLAFAXINE HCL XR 75 MG CAPXR PO SCH (09:03)
[2021-09-13] MEDS: THIAMINE HCL 100 MG TAB PO SCH (09:03)
[2021-09-13] MEDS: PANTOprazole 40 MG in SYRINGE 0 ML IV SCH ×2 (09:04→17:25)
[2021-09-13] MEDS: CASPOFUNGIN 50 MG in SODIUM CHLORIDE 0.9% 250 ML IV SCH (14:46)
--- NOTE | 2021-09-13 16:37 | Discharge Summary ---
Date of Service September 13, 2021 Admission HPI Per Admitting Provider Ravi is a 56-year-old male with a past medical history of MS on no medications, anxiety/depression and alcohol abuse who presents with several weeks of abdominal pain severely worsened since 11 PM evening of admission. H&P somewhat abbreviated as patient being prepped for OR. Ravi reports that he has a medical history of abdominal pain on and off for several weeks. He has been taking Pepto-Bismol intermittently for this, and twice daily in the past week which causes a stool to become dark/black. He has not appreciated any blood in his stool. Reports he also takes ibuprofen 2 tablets 200 mg a day intermittently, uses this for couple of days approximately 2 weeks each month for also/joint pain. He drinks alcohol daily, recently approximately 1/5 a day of liquor usually gin. He has not had an alcohol free day since last summer. He has experienced shaking when going without alcohol before, denies any history of seizure or DTs. Is aware CT scan has showed a perforated gastric ulcer with free air in the abdomen. Denies fever, chills. Endorses breathing is difficult because of the pain in his abdomen on inspiration, otherwise no shortness of breath. Denies any cardiac history, or history of heart problems. He does endorse intermittent wheezing, no wheezing at bedside. He does not have a formal diagnosis of COPD, does not use inhalers.He is a current smoker. He denies any medication or environmental allergies Denies recent medication changes Medical History: Reviewed Medications: Reviewed Surgical History: Reviewed Allergies: Reviewed Social History: Endorses high alcohol use as above, current tobacco use Code Status: Full code. Surrogate decision maker would be his Hyacinth Discharge Data Allergies Allergy/AdvReac Type Severity Reaction Status Date / Time No Known Allergies Allergy Verified 09/07/21 05:00 Consultations 09/07/21 04:00 ED Decision to Admit Stat 09/07/21 08:29 Consult General Surgery Routine 09/10/21 16:12 Consult Infectious Diseases Routine 09/12/21 10:39 Consult Gastroenterology Routine Procedures Performed Operation Date: 09/07/21 05:15 Actual Procedures p Exploratory Laparotomy and Suture Repair of Perforated Pre Pyloric Gastric Ulcer - Randall Randall MD, FACS Ordered Studies 09/07/21 02:10 CT abd pelvis IV con only Urgent Diabetes Follow up Diabetes Follow-up Needed for Newly Diagnosed Diabetes Hospital Course (1) Gastric ulcer: Perforated gastric ulcer with acute peritonitis. POD #5 s/p exploratory laparotomy with Russ patch repair. s/p Upper GI series without extravasation of contrast. tolerated clears, now on full liquids and tolerating that as well. s/p PPI drip for 3 days (finished AM of 09/11). then 40mg iv bid x 3 days (started PM of 09/11). Remains on IV zosyn and IV caspofungin for peritonitis - see below. appreciate gen surgery recs/management. check H pylori stool ag GI consult completed - will have outpatient EGD in ~6 weeks (2) Peritonitis, acute generalized: Intra-op peritoneal fluid culture grew ran glabrata. He is day #4 of IV caspofungin. He is day #6 of IV zosyn. He has no evidence of ongoing peritonitis on exam. Appreciate [facility] ID consultation. Plan 7 days of IV zosyn. Plan 10 days of IV caspofungin. If he d/c home soon hopefully can perform once daily anti-fungals outside the hospital - will need SW assistance. (3) Alcohol abuse: despite such no evidence of etoh withdrawal. completed gabapentin taper. cont thiamine, cont folate. (4) Depression: Continue venlafaxine 75 mg XR once daily (5) Multiple sclerosis: Patient reports he was diagnosed with this ~10 years ago but has not needed any medications for such. (6) COPD (chronic obstructive pulmonary disease): no flare at this time bronchodilators prn (7) Iron deficiency anemia: severe ferritin = 14.8. likely had smoldering blood loss from his ulcer for weeks-months. will give IV venofer today - start with 200mg x 1. then give IV venofer tomorrow - 300mg as tolerated. (8) Type 2 diabetes mellitus: Hba1c 8.4% at discharge will use amaryl 1mg daily. poor candidate for metformin due to etoh use. cont lantus-novolog while here. DVT prophylaxis: Lovenox 40 mg SQ daily extensively updated by phone this evening with surgery's permission I consulted PT/OT Discharge Plan Discharge Items Patient Disposition: Home - Self-Care Reason For Visit: PERFORATED GASTRIC ULCER Discharge Diagnosis: 1. Perforated gastric ulcer - repair by Dr Brant Randall 2. Type 2 diabetes 3. Severe iron deficiency Activity: Per Instructions section Lifting: No more than 10 pounds Bathing Comment: may shower; no soaking in tubs/pools Exercise/Sports: Wait until after follow-up appointment Driving/Machine Use: no driving while taking narcotics for pain Non-emergency contact: Primary Care Provider and Surgeon Call non-emergency contact if: you have any medication questions, your symptoms worsen, your pain is not controlled, your pain is concerning for you, you have a fever, your temperature is above 101, your wound has increased redness, your w ound has increased drainage and your wound pain has increased Follow-up/Referrals: Hunter Marie DO [Physician] - (6 weeks for EGD; please also ask about a screening colonoscopy) Newton Chu III, CRNP [Primary Care Provider] - 09/18/21 9:45 am (Primary Care: hospital follow up, and to become established as a new patient.) Randall Randall MD, FACS [Surgeon] - (Please call to schedule follow up in clinic within 1 week) Diet: Carb Consistent or DM2 and Low Fiber Addtl Attending Provider Instructions: Mr Herrmann, You were hospitalized for a perforated gastric ulcer that led to peritonitis (infection) of your abdominal cavity. Dr Randall took you emergently to the OR and repaired the perforation. Cultures from the fluid in your abdomen ultimately grew ran/yeast. During your stay we also saw evidence of type 2 diabetes. Your hemoglobin a1c was just over 8% (please see handout describing the a1c test and what it means). Further, we found evidence of severe iron deficiency, presumed to be from chronic intestinal blood loss (likely from your gastric ulcer). Dr Randall ultimately allowed you to resume a diet and this was advanced. At time of discharge you are taking a diabetic, low-fiber diet. Your peritonitis was treated with IV antibiotics and IV anti-fungal therapy. Recommendations - 1. Caspofungin IV anti-fungal medication - take once daily x 5 days beginning 09/14/21. This will be given at the [facility]. 2. The IV in your arm will be kept in place until the 5-day course of anti- fungal is complete. Please keep the IV clean and dry. During showers please wrap the IV to ensure it does not get wet. The IV will be removed after your final dose of IV anti-fungal. 3. For your ulcer - take pantoprazole 40mg twice daily every day, first dose tomorrow morning upon awakening. 4. For your diabetes - take glimepiride 1mg once daily with breakfast. The biggest side effect of this medication is hypoglycemia (low blood sugar). If you ever have symptoms of a "low" - dizziness, lightheadedness, tremors/shaky, sweaty - please check your blood sugar. Normal blood sugar is 70 and up. 5. Check your blood sugar once daily. Vary the time you check it day to day. For example, on one day check it in the AM upon awakening. The next day check it at dinner-time. The next day check it at bedtime - and so further. Keep a log of your numbers and show them to your family provider. 6. Take thiamine 200mg twice daily for 30 days. Take folic acid 1mg once daily for 30 days. 7. For pain related to your recent surgery - * hydrocodone/acetaminophen - 1 tab every 6 hours as needed * know that this is a narcotic pain killer - DO NOT DRINK ALCOHOL while taking this medication; do NOT drive a car while taking this medication * the medication can make you sleepy * it can also cause constipation * this medication contains tylenol so do not take extra [id number] tylenol while on hydrocodone 8. Please ask your family provider about getting another IV iron infusion in the next few weeks. 9. Low-fiber diet until you see Dr Randall. See handout. 10. Avoid excessive amounts of caffeinated beverages (coffee, soda, tea), spicy foods, fried foods, and alcohol. All of these items will make it harder for your stomach to heal. 11. Please reach out to a local counselor, AA, etc to help you maintain your sobriety. Your family physician can also help you get the assistance that you need. 12. It is ok to drive per Dr Randall but trips should be very short at this time (in-town only). Follow-up - see separate section Return to [facility] if - * you have fevers over 101 degrees * you have any concerns about your abdominal incision/veronica * you have worsening abdominal pain * you are not passing gas from your rectum * you have vomiting * you have severe diarrhea * you have chest pains or shortness of breath * any other concerns It was our pleasure to care for you! Best wishes for a speedy recovery! Dr Bone Pending Studies at Discharge: Yes Studies:: H Pylori stool test Stand-Alone Forms: My [facility], Smoking Cessation Medications and DC Order Prescriptions: New thiamine HCl (vitamin B1) 100 mg Tablet 200 mg PO BID 30 Days Qty: 120 RF: 0 folic acid 1 mg Tablet 1 mg PO QAM Qty: 30 RF: 0 pantoprazole [Protonix] 40 mg tablet,delayed release (DR/EC) 40 mg PO BID Qty: 60 RF: 2 hydrocodone-acetaminophen 5-325 mg tablet 1 tab PO Q6H PRN (Reason: pain) Qty: 10 RF: 0 (DME) OneTouch Verio test strips Strip See Rx Instructions .Route Qty: 100 RF: 2 venlafaxine 75 mg capsule,extended release 24hr 75 mg PO DAILY Qty: 30 RF: 0 (DME) lancets [OneTouch Delica Lancets] 33 gauge misc See Rx Instructions .Route Qty: 100 RF: 1 glimepiride [Amaryl] 1 mg tablet 1 mg PO QAM Qty: 30 RF: 2 caspofungin 50 mg recon soln 50 mg IV DAILY Qty: 5 RF: 0 Continued clonazepam [Klonopin] 0.5 mg tablet 0.5 - 1 mg PO HS Qty: 20 RF: 0 Discharge Orders: Discharge Order (Routine); Ordered 09/13/21 Ordered By: Aldo Shelton/Other Patient Handouts: Low-Fiber Diet, Managing Diabetes: The A1C Test, Understanding Type 2 Diabetes, Understanding Gastric Ulcers, ED Anemia, Iron- Deficiency (Adult), Type 2 Diabetes Admission Data Admit Date/Time: 09/07/21 05:04 Attending Provider: Aldo Bone Admit Provider: Parth Morris Primary Care Provider: Newton Chu III Other Providers: Parth Morris ; Randall Randall ; Salvador Calix ; Kourtney Abdullahi ; Charli Higginbotham I. ; Mauro Jolly II ; Salud Barrow ; Lio Hugo ; Narayan Heredia ; Hunter Marie Coding Diagnoses Gastric ulcer K25.9 Peritonitis, acute generalized K65.0 Alcohol abuse F10.10 Depression F32.9 Multiple sclerosis G35 COPD (chronic obstructive pulmonary disease) J44.9 Iron deficiency anemia D50.9 Type 2 diabetes mellitus E11.9
== END 2021-09-13 17:40 | disposition home or self-care (01) | DRG 326 ==
LOC: ED 01:25 → OR 05:03 → 2E 05:03 → SUATTDRO 05:04

== ENCOUNTER 2021-11-19 08:15 | Inpatient (IN) ==
[2021-11-19] MEDS ORDERED: OPTIRAY 320 125ml IV ONE (08:33)
--- NOTE | 2021-11-19 08:45 | CT Scan Report ---
CT angio neck with con, CT head/brain wo con, CT angio head w con CLINICAL HISTORY: Stroke Like Symptoms TECHNIQUE: Contiguous axial CT images of the head were acquired from the base of the skull to the sandra jose j without intravenous contrast administration. CT angiography of the head and neck was performed f ollowing intravenous administration of iodinated contrast. Coronal and sagittal MIPS were obtained fr om the axial data set and were submitted for review. Automated dose lowering techniques and/or adjus tment according to patient size were utilized for this examination. All measurements were calculated based on NASCET criteria. CT DOSE: 1210.73 mGy.cm Comparison: None available at the time of this dictation. FINDINGS: CT head: There is no acute intracranial hemorrhage or evidence of acute territorial infarction. No sh ift of the midline structures, mass effect, or extra-axial abnormalities are shown. Old lacunar infar ct on the right. Lungs and soft tissues are unremarkable. CTA Neck: A 3 vessel aortic arch is shown. There is no significant atherosclerotic plaque in the aor tic arch or the origins of the innominate, left common carotid, and left subclavian arteries. The c ommon carotid, external carotid, cervical segments of the internal carotid arteries, and the cervical segments of the vertebral arteries are patent without hemodynamically significant stenosis. The left vertebral artery is dominant. Mild atherosclerosis is at the origin of the left vertebral artery. CTA Head: The anterior and posterior cerebral circulations are patent. No hemodynamically significan t stenosis, aneurysm, dissection, or arteriovenous malformation is shown. Atherosclerotic disease is noted. IMPRESSION: 1. No acute intracranial hemorrhage, evidence of acute territorial infarction, or other acute intrac ranial disease process. 2. No occlusion, hemodynamically significant stenosis, aneurysm, dissection, or arteriovenous malfor mation in the major intracranial arteries. 3. No occlusion, hemodynamically significant stenosis, or dissection in the major cervical arteries. Assessment of stenosis of the internal carotid arteries is based on NASCET criteria. ACT 112: Negative or not required by law. Electronically signed by: Juan J Ramos M.D. 11/19/2021 8:44 AM
--- NOTE | 2021-11-19 08:51 | Emergency Department Note ---
History of Present Illness General Chief complaint: Stroke Alert Stated complaint: Stroke alert History of Present Illness 56-year-old male presents to the ED with a chief complaint of CVA symptoms. The patient was at home and states that he was picking up a piece of plastic on the ground to throw it away when he suddenly fell. He states that his left shoe felt like it was coming off and this caused him to stumble. He landed on his right arm and he could not get up. His son helped him up. When he initially got up from the position that he was in and was sitting, he felt like his arms and legs were tingly and he had weakness in all of his arms and legs but he states that the right side seem to be worse. BLS provider got on scene, he felt that the patient had some word finding issues but this resolves rather quickly. The patient was transported here by EMS. The patient has a sensation that his right arm and right leg are slightly weaker than his left myron and he has some paresthesias in his hands but otherwise denies any additional complaints. There was no facial droop noted for EMS. EMS did feel like his right side was slightly weaker than the left on exam. The patient does have a history of MS that is currently nonprogressive and without treatment. He also has a history of alcoholism and is a smoker. He did not take his medications for hypertension this morning. Home Medications Medication Instructions Recorded Confirmed Type blood sugar diagnostic (Websuch #100 ea 09/13/21 10/22/21 Rx Verio test strips) glimepiride 1 mg tablet (Amaryl) 1 mg PO QAM #30 tab 09/13/21 10/31/21 Rx lancets 33 gauge (OneTouch Delica #100 ea 09/13/21 10/22/21 Rx Lancets) ferrous sulfate 142 mg (45 mg 142 mg PO QAM 10/22/21 10/31/21 History iron) tablet,extended release (Slow Fe) sodium sul 1.479 gram-potas ch See Rx Instructions PO .COMPLEX 10/23/21 Rx 0.188 gram-magnes sul 0.225 gram #24 tab tablet (Sutab) lisinopril 5 mg tablet 5 mg PO HS 10/25/21 10/31/21 History venlafaxine 75 mg capsule,extended 75 mg PO QPM 10/25/21 10/31/21 History release 24 hr pantoprazole 40 mg tablet,delayed 40 mg PO DAILY #30 tab 11/04/21 Rx release (Protonix) Allergies Allergy/AdvReac Type Severity Reaction Status Date / Time No Known Allergies Allergy Verified 10/31/21 08:49 Past Med/Surg History Medical History Anemia Anxiety and depression Arthritis Diabetes mellitus, type 2 GERD (gastroesophageal reflux disease) Hx of gastric ulcer PYLORIC ULCER Hypertension Migraine Mitral valve prolapse NO CARDS "MILD" Multiple sclerosis Surgical History H/O exploratory laparotomy (09/07/21) Exploratory Laparotomy and Suture Repair of Perforated Pre Pyloric Gastric Ulcer - Randall Randall MD, FACS abdominal washout 09/07/2021 History of colonoscopy [place] teeth removed Family History Aunt Breast cancer Sister Non-Hodgkin lymphoma Mother Schizophrenia Lung cancer Grandfather (Paternal) Stroke Father AA (alcohol abuse) Other No family history of adverse response to anesthesia Denies family history of Ovarian cancer Prostate cancer Myocardial infarction Colorectal cancer Social History Smoking Status: Current every day smoker Tobacco Type: Cigarettes Age Started Using Tobacco: 15; packs per day: 1.5; Years Smoked: 41; Cigarettes Per Day: 20 CIG DAILY *ADVISED; Second Hand Exposure: Yes ( A CHILD); Hx Alcohol Use: Yes Alcohol type: hard liquor Alcohol Intake Frequency: 4 or More x per/Week Hx Substance Use: No Preferred Language: Sinhala Communication Ability: Effective Visual Impairment: No Limitations Hearing Ability: Normal Warehouse Material Handler Required: No Beliefs That Will Affect Care: None marital status: Current Living Situation: Spouse current occupational status: employed 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 How many Children do You have: 3 Feels Safe at Home: Yes Childhood Exposure to Second-Hand Smoke: Yes caffeine: Yes during the past year weight has: remained stable Dental Care, Regularly: No Physical Activity Frequency: 3-4 Times per Week Seatbelt Use: always Sunscreen Use: Yes Assistive Devices: Glasses Review of Systems A total of 10 systems reviewed and were otherwise negative Physical Exam Vital Signs Vital Signs - 24 hr 11/19/21 08:37 11/19/21 08:40 11/19/21 08:45 Temperature 36.8 C Temperature Source Oral Pulse Rate 102 H 106 H 124 H Pulse Rate from SpO2 Sensor 103 H 107 H Respiratory Rate 28 H 26 H 26 H Respiratory Effort / Characteristics Non-Labored Respiratory Depth Normal Blood Pressure 199/101 H Blood Pressure Mean 133 Pulse Oximetry 100 99 Oxygen Delivery Method Room Air Room Air Sepsis Recent Fever Within 48 Hours No Sepsis New/Unexplained Change in Mental Status No Sepsis Action Taken by Nursing No Action Required 11/19/21 08:50 11/19/21 08:55 11/19/21 09:06 Temperature Temperature Source Pulse Rate 101 H 100 H 101 H Pulse Rate from SpO2 Sensor 95 H Respiratory Rate 21 23 26 H Respiratory Effort / Characteristics Respiratory Depth Blood Pressure Blood Pressure Mean Pulse Oximetry 100 Oxygen Delivery Method Room Air Sepsis Recent Fever Within 48 Hours Sepsis New/Unexplained Change in Mental Status Sepsis Action Taken by Nursing 11/19/21 09:07 Temperature Temperature Source Pulse Rate Pulse Rate from SpO2 Sensor Respiratory Rate Respiratory Effort / Characteristics Respiratory Depth Blood Pressure 155/123 H Blood Pressure Mean 133 Pulse Oximetry Oxygen Delivery Method Room Air Sepsis Recent Fever Within 48 Hours Sepsis New/Unexplained Change in Mental Status Sepsis Action Taken by Nursing CONSTITUTIONAL/VITAL SIGNS: Reviewed / noted above. GENERAL: Non-toxic in appearance. INTEGUMENTARY: Warm, dry, and [place]. HEAD: Normocephalic. EYES: without scleral icterus or trauma. ENT/OROPHARYNX: clear and moist. LYMPHADENOPATHY/NECK: Is supple without lymphadenopathy or meningismus. RESPIRATORY: Clear to auscultation bilaterally. No increased work of breathing. CARDIOVASCULAR: Regular rate and rhythm. GI/ABDOMEN: Soft and nontender. No organomegaly or pulsatile mass. EXTREMITIES: Warm and well perfused. Abrasion noted to the right knee. BACK: No CVA tenderness. NEUROLOGICAL: Intact without focal deficits. No pronator drift. Normal strength in the lower and upper extremities. Grossly normal sensation although the patient reports subjective paresthesias. No facial droop. Cerebellar te sting is within normal limits. PSYCHIATRIC: normal affect. MUSCULOSKELETAL: Normally developed with good muscle tone. TRIAGE NURSING DOCUMENTATION REVIEWED. Course Administered Medications Discontinued Medications Ioversol (Optiray 320 125ml) 120 ml IV ONCE ONE Stop: 11/19/21 08:34 Last Admin: 05/24/22 08:33 Dose: 120 ml Documented by: [id number] Medical Decision Making Differential Diagnosis Differential includes acute coronary syndrome, myocardial infarction, CVA, TIA, anemia, infection, pneumonia, UTI, pyelonephritis, poor nutrition, dehydration, electrolyte disturbance,hypoglycemia. Medical Records Attestation: I reviewed the patient's medical records. Home Medications Current Medication List: was personally reviewed by me Laboratory Data Attestation: I reviewed the patient's lab results. Result diagrams: 11/19/21 08:20 11/19/21 08:20 Lab Results 11/19/21 11/19/21 11/19/21 Range/Units 08:20 08:20 08:20 WBC 7.44 (4.8-10.8) K/uL RBC 5.14 (4.7-6.1) M/uL Hgb 11.2 L (14.0-18.0) g/dL Hct 39.5 L (42-52) % MCV 76.8 L (80-100) fL MCH 21.8 L (25-34) pg MCHC 28.4 L (32-36) g/dL RDW Std Deviation 63.1 H (36.4-46.3) fL RDW Coeff of Shady 22.9 H (11.5-14.5) % Plt Count 338 (130-400) K/uL MPV 8.6 (7.4-10.4) fL Immature Gran % (Auto) 0.3 % Neut % (Auto) 49.7 % Lymph % (Auto) 35.1 % Perkins % (Auto) 11.4 % Eos % (Auto) 2.4 % Baso % (Auto) 1.1 % Neut # (Auto) 3.70 (1.4-6.5) K/uL Lymph # (Auto) 2.61 (1.2-3.4) K/uL Perkins # (Auto) 0.85 H (0.11-0.59) K/uL Eos # (Auto) 0.18 (0-0.5) K/uL Baso # (Auto) 0.08 (0-0.2) K/uL Immature Gran # (Auto) 0.02 (0.00-0.02) K/uL Polychromasia 1+ Hypochromasia Present Anisocytosis Present Microcytosis Present PT 12.8 H (9.0-12.0) Seconds INR 1.2 H (0.9-1.1) APTT 23.6 (21.0-31.0) Seconds PTT Ratio 0.9 Sodium 138 (136-145) mmol/L Potassium 3.3 L (3.5-5.1) mmol/L Chloride 105 (98-107) mmol/L Carbon Dioxide 26 (21-32) mmol/L Anion Gap 7 (3-11) BUN 8 (6-23) mg/dl Creatinine 0.86 (0.6-1.4) mg/dl Est Cr Clr Drug Dosing 113.1 ml/min Est GFR ( Amer) 113.1 ml/min Est GFR (Non-Af Amer) 97.6 ml/min BUN/Creatinine Ratio 9.3 L (10-20) Glucose 155 H (70-99(Fasting)) mg/dl POC Glucose (70-99) mg/dl Calcium 9.6 (8.5-10.1) mg/dl Magnesium 2.0 (1.7-2.4) mg/dl Total Bilirubin 0.6 (0.2-1.0) mg/dl AST 22 (13-39) U/L ALT 18 (7-52) U/L Alkaline Phosphatase 97 (34-104) U/L Troponin I High Sens 21.3 H (0-20) pg/ml Total Protein 7.0 (6.0-8.3) gm/dl Albumin 4.1 (3.4-5.0) gm/dl Globulin 2.9 (2.5-4.0) gm/dl Albumin/Globulin Ratio 1.4 (0.9-2) 11/19/21 Range/Units 08:34 WBC (4.8-10.8) K/uL RBC (4.7-6.1) M/uL Hgb (14.0-18.0) g/dL Hct (42-52) % MCV (80-100) fL MCH (25-34) pg MCHC (32-36) g/dL RDW Std Deviation (36.4-46.3) fL RDW Coeff of Shady (11.5-14.5) % Plt Count (130-400) K/uL MPV (7.4-10.4) fL Immature Gran % (Auto) % Neut % (Auto) % Lymph % (Auto) % Perkins % (Auto) % Eos % (Auto) % Baso % (Auto) % Neut # (Auto) (1.4-6.5) K/uL Lymph # (Auto) (1.2-3.4) K/uL Perkins # (Auto) (0.11-0.59) K/uL Eos # (Auto) (0-0.5) K/uL Baso # (Auto) (0-0.2) K/uL Immature Gran # (Auto) (0.00-0.02) K/uL Polychromasia Hypochromasia Anisocytosis Microcytosis PT (9.0-12.0) Seconds INR (0.9-1.1) APTT (21.0-31.0) Seconds PTT Ratio Sodium (136-145) mmol/L Potassium (3.5-5.1) mmol/L Chloride (98-107) mmol/L Carbon Dioxide (21-32) mmol/L Anion Gap (3-11) BUN (6-23) mg/dl Creatinine (0.6-1.4) mg/dl Est Cr Clr Drug Dosing ml/min Est GFR ( Amer) ml/min Est GFR (Non-Af Amer) ml/min BUN/Creatinine Ratio (10-20) Glucose (70-99(Fasting)) mg/dl POC Glucose 162 H (70-99) mg/dl Calcium (8.5-10.1) mg/dl Magnesium (1.7-2.4) mg/dl Total Bilirubin (0.2-1.0) mg/dl AST (13-39) U/L ALT (7-52) U/L Alkaline Phosphatase (34-104) U/L Troponin I High Sens (0-20) pg/ml Total Protein (6.0-8.3) gm/dl Albumin (3.4-5.0) gm/dl Globulin (2.5-4.0) gm/dl Albumin/Globulin Ratio (0.9-2) Imaging Data Radiologist's Impression: Chest X-Ray 11/19/21 08:13 XR chest 1V portable HISTORY: Stroke Like Symptoms COMPARISON: Chest 09/07/2021. FINDINGS: The lungs are clear. Cardiac silhouette remains mildly enlarged. No pleural effusions. No pneumothorax. IMPRESSION: Stable mild cardiomegaly. Otherwise, no acute process within the chest. ACT 112: Negative or not required by law. Electronically signed by: Salvador Myers M.D. 11/19/2021 8:[address] 11/19/21 08:13 CT angio neck with con, CT head/brain wo con, CT angio head w con CLINICAL HISTORY: Stroke Like Symptoms TECHNIQUE: Contiguous axial CT images of the head were acquired from the base of the skull to the vertex without intravenous contrast administration. CT angiography of the head and neck was performed following intravenous administration of iodinated contrast. Coronal and sagittal MIPS were obtained from the axial data set and were submitted for review. Automated dose lowering techniques and/or adjustment according to patient size were utilized for this examination. All measurements were calculated based on NASCET criteria. CT DOSE: 1210.73 mGy.cm Comparison: None available at the time of this dictation. FINDINGS: CT head: There is no acute intracranial hemorrhage or evidence of acute territorial infarction. No shift of the midline structures, mass effect, or extra-axial abnormalities are shown. Old lacunar infarct on the right. Lungs and soft tissues are unremarkable. CTA Neck: A 3 vessel aortic arch is shown. There is no significant atherosclerotic plaque in the aortic arch or the origins of the innominate, left common carotid, and left subclavian arteries. The common carotid, external carotid, cervical segments of the internal carotid arteries, and the cervical segments of the vertebral arteries are patent without hemodynamically significant stenosis. The left vertebral artery is dominant. Mild atherosclerosis is at the origin of the left vertebral artery. CTA Head: The anterior and posterior cerebral circulations are patent. No hemodynamically significant stenosis, aneurysm, dissection, or arteriovenous malformation is shown. Atherosclerotic disease is noted. IMPRESSION: 1. No acute intracranial hemorrhage, evidence of acute territorial infarction, or other acute intracranial disease process. 2. No occlusion, hemodynamically significant stenosis, aneurysm, dissection, or arteriovenous malformation in the major intracranial arteries. 3. No occlusion, hemodynamically significant stenosis, or dissection in the major cervical arteries. Assessment of stenosis of the internal carotid arteries is based on NASCET criteria. ACT 112: Negative or not required by law. Electronically signed by: Juan J Ramos M.D. 11/19/2021 8:44 AM Head CTA 11/19/21 08:13 CT angio neck with con, CT head/brain wo con, CT angio head w con CLINICAL HISTORY: Stroke Like Symptoms TECHNIQUE: Contiguous axial CT images of the head were acquired from the base of the skull to the vertex without intravenous contrast administration. CT angiography of the head and neck was performed following intravenous administration of iodinated contrast. Coronal and sagittal MIPS were obtained from the axial data set and were submitted for review. Automated dose lowering techniques and/or adjustment according to patient size were utilized for this examination. All measurements were calculated based on NASCET criteria. CT DOSE: 1210.73 mGy.cm Comparison: None available at the time of this dictation. FINDINGS: CT head: There is no acute intracranial hemorrhage or evidence of acute territorial infarction. No shift of the midline structures, mass effect, or extra-axial abnormalities are shown. Old lacunar infarct on the right. Lungs and soft tissues are unremarkable. CTA Neck: A 3 vessel aortic arch is shown. There is no significant atherosclerotic plaque in the aortic arch or the origins of the innominate, left common carotid, and left subclavian arteries. The common carotid, external c arotid, cervical segments of the internal carotid arteries, and the cervical segments of the vertebral arteries are patent without hemodynamically significant stenosis. The left vertebral artery is dominant. Mild atherosclerosis is at the origin of the left vertebral artery. CTA Head: The anterior and posterior cerebral circulations are patent. No hemodynamically significant stenosis, aneurysm, dissection, or arteriovenous malformation is shown. Atherosclerotic disease is noted. IMPRESSION: 1. No acute intracranial hemorrhage, evidence of acute territorial infarction, or other acute intracranial disease process. 2. No occlusion, hemodynamically significant stenosis, aneurysm, dissection, or arteriovenous malformation in the major intracranial arteries. 3. No occlusion, hemodynamically significant stenosis, or dissection in the major cervical arteries. Assessment of stenosis of the internal carotid arteries is based on NASCET criteria. ACT 112: Negative or not required by law. Electronically signed by: Juan J Ramos M.D. 11/19/2021 8:44 AM Neck CTA 11/19/21 08:13 CT angio neck with con, CT head/brain wo con, CT angio head w con CLINICAL HISTORY: Stroke Like Symptoms TECHNIQUE: Contiguous axial CT images of the head were acquired from the base of the skull to the vertex without intravenous contrast administration. CT angiography of the head and neck was performed following intravenous administration of iodinated contrast. Coronal and sagittal MIPS were obtained from the axial data set and were submitted for review. Automated dose lowering techniques and/or adjustment according to patient size were utilized for this examination. All measurements were calculated based on NASCET criteria. CT DOSE: 1210.73 mGy.cm Comparison: None available at the time of this dictation. FINDINGS: CT head: There is no acute intracranial hemorrhage or evidence of acute territorial infarction. No shift of the midline structures, mass effect, or extra-axial abnormalities are shown. Old lacunar infarct on the right. Lungs and soft tissues are unremarkable. CTA Neck: A 3 vessel aortic arch is shown. There is no significant atherosclerotic plaque in the aortic arch or the origins of the innominate, left common carotid, and left subclavian arteries. The common carotid, external car otid, cervical segments of the internal carotid arteries, and the cervical segments of the vertebral arteries are patent without hemodynamically significant stenosis. The left vertebral artery is dominant. Mild atherosclerosis is at the origin of the left vertebral artery. CTA Head: The anterior and posterior cerebral circulations are patent. No hemodynamically significant stenosis, aneurysm, dissection, or arteriovenous malformation is shown. Atherosclerotic disease is noted. IMPRESSION: 1. No acute intracranial hemorrhage, evidence of acute territorial infarction, or other acute intracranial disease process. 2. No occlusion, hemodynamically significant stenosis, aneurysm, dissection, or arteriovenous malformation in the major intracranial arteries. 3. No occlusion, hemodynamically significant stenosis, or dissection in the major cervical arteries. Assessment of stenosis of the internal carotid arteries is based on NASCET criteria. ACT 112: Negative or not required by law. Electronically signed by: Juan J Ramos M.D. 11/19/2021 8:44 AM ECG Data Attestation: I personally reviewed and interpreted this ECG as follows: Additional Comments: Twelve-lead EKG: Per my interpretation shows a sinus tach at a rate of 106. No ST elevation. No PVCs. Normal QTC. MDM Narrative 56-year-old male presents with some transient strokelike symptoms although not classic. CT scans as well as CT angiograms of the head and neck did not show any acute abnormalities. EKG shows a sinus rhythm. His exam on my evaluation was normal and he has no stroke symptoms at this time. Stroke scale is 0. He does have an abrasion on his right knee. The patient CBC and chemistry panel was unremarkable. Troponin was 21. The patient denies any chest pains or shortness of breath. He was evaluated by Dr. Villalba from [facility]. She recommended MRI with and without contrast to rule out the possibility of MS flare. She felt that stroke and TIA was a little lower on the differential as it did not seem classic. She also felt that his symptoms, extremity paresthesias, could be related to neuropathy related to the patient's alcohol use and diabetes. She recommended further inpatient evaluation with MRI and neurology consult Impression & Plan Stroke-like episode Discharge Plan Visit Data Chief Complaint: Stroke Alert Stated Complaint: Stroke alert ED Provider: Diaz Dowling Discharge Problem: Stroke-like episode Patient Disposition: Being Evaluated by Hospitalist Forms Stand Alone Forms: [facility] Prescriptions Prescriptions: No Action Sutab 1.479-0.188- 0.225 gram tablet See Rx Instructions PO .COMPLEX Qty: 24 RF: 0 pantoprazole [Protonix] 40 mg tablet,delayed release (DR/EC) 40 mg PO DAILY Qty: 30 RF: 2 Slow Fe 142 mg (45 mg iron) tablet extended release 142 mg PO QAM RF: 0 (DME) OneTouch Verio test strips Strip See Rx Instructions .Route Qty: 100 RF: 2 (DME) lancets [OneTouch Delica Lancets] 33 gauge misc See Rx Instructions .Route Qty: 100 RF: 1 glimepiride [Amaryl] 1 mg tablet 1 mg PO QAM Qty: 30 RF: 2 venlafaxine 75 mg capsule,extended release 24hr 75 mg PO QPM RF: 0 lisinopril 5 mg tablet 5 mg PO HS RF: 0 Referrals Referrals: Newton Chu III, CRNP [Primary Care Provider] -
[2021-11-19 08:52] LABS: Hematocrit (blood only) 39.5 % (42-52); Hemoglobin 11.2 g/dL (14.0-18.0); Mean Corpuscular Hemoglobin 21.8 pg (25-34); Mean Corpuscular Hgb Conc 28.4 g/dL (32-36); Mean Corpuscular Volume 76.8 fL (80-100); Mean Platelet Volume 8.6 fL (7.4-10.4); Platelet Count 338 K/uL (130-400); RDW Coefficient of Variation 22.9 % (11.5-14.5); RDW Standard Deviation 63.1 fL (36.4-46.3); Red Blood Count 5.14 M/uL (4.7-6.1); White Blood Count 7.44 K/uL (4.8-10.8)
[2021-11-19 08:57] LABS: INR 1.2 (0.9-1.1); Partial Thromboplastin Ratio 0.9; Partial Thromboplastin Time 23.6 Seconds (21.0-31.0); Prothrombin Time 12.8 Seconds (9.0-12.0)
[2021-11-19 09:00] LABS: Anisocytosis Present; Basophils # (auto) 0.08 K/uL (0-0.2); Basophils % (auto) 1.1 %; Eosinophils # (auto) 0.18 K/uL (0-0.5); Eosinophils % (auto) 2.4 %; Hypochromasia Present; Immature Granulocytes # (auto) 0.02 K/uL (0.00-0.02); Immature Granulocytes % (auto) 0.3 %; Lymphocytes # (auto) 2.61 K/uL (1.2-3.4); Lymphocytes % (auto) 35.1 %; Microcytosis Present; Monocytes # (auto) 0.85 K/uL (0.11-0.59); Monocytes % (auto) 11.4 %; Neutrophils % (auto) 49.7 %; Polychromasia 1+
--- NOTE | 2021-11-19 09:01 | XRay Report ---
XR chest 1V portable HISTORY: Stroke Like Symptoms COMPARISON: Chest 09/07/2021. FINDINGS: The lungs are clear. Cardiac silhouette remains mildly enlarged. No pleural effusions. No p neumothorax. IMPRESSION: Stable mild cardiomegaly. Otherwise, no acute process within the chest. ACT 112: Negative or not required by law. Electronically signed by: Salvador Myers M.D. 11/19/2021 8:59 AM
[2021-11-19 09:11] LABS: Albumin Globulin Ratio 1.4 (0.9-2); Albumin Level 4.1 gm/dl (3.4-5.0); BUN Creatinine Ratio 9.3 (10-20); Bilirubin,Total 0.6 mg/dl (0.2-1.0); Calcium 9.6 mg/dl (8.5-10.1); Creatinine Clr Calc Pharmacy 113.1 ml/min; Est GFR (African American) 113.1 ml/min; Est GFR (Non-African American) 97.6 ml/min; Globulin 2.9 gm/dl (2.5-4.0); Potassium 3.3 mmol/L (3.5-5.1)
[2021-11-19 09:12] LABS: Troponin I High Sensitivity 21.3 pg/ml (0-20)
[2021-11-19] MEDS ORDERED: PHARMACIST DISCHARGE MED REC CONSULT PRN (09:19)
[2021-11-19] MEDS ORDERED: ACETAMINOPHEN 325 MG TAB PO PRN (09:19)
--- NOTE | 2021-11-19 12:03 | History & Physical Report ---
Date of Service November 19, 2021 Assessment & Plan (1) Stroke-like episode: Plan: Stroke like episode in a56 yo male with history of smoking. consulted Neuro Will obtain MRI head check echo, permissive hypertension. place on ASA appreciate input from neuro (2) Multiple sclerosis: Plan: appears stable. will monitor (3) Neck pain: Plan: will obtain MRI of c spine (4) Hypertension: Plan: resume home meds Admission and Anticipated Discharge Date Admission Date: November 19, 2021 History of Present Illness Chief Complaint: fall Primary Care Provider: Newton Chu III, INSTRUCTOR INDUSTRIAL DESIGN 56 yo male with PMH described below presents to the Hospital after falling. Patient woke up at7:00 and the episode occured at 7:15 am. He states he did not have a syncopal episode nor did he lose conscoiussness. Patient did not have any seizure activity. Patient states he was taking out the garbage when he felt his left leg get weak and he fell on his right side. Patient reports he couldn't get up. He called for help by his son, who then called EMS. Patient was not hypoglycemic. Allergies Allergy/AdvReac Type Severity Reaction Status Date / Time No Known Allergies Allergy Verified 10/31/21 08:49 Home Medications Medication Instructions Recorded Confirmed Type blood sugar diagnostic (DZZOMTouch #100 ea 09/13/21 10/22/21 Rx Verio test strips) glimepiride 1 mg tablet (Amaryl) 1 mg PO QAM #30 tab 09/13/21 10/31/21 Rx lancets 33 gauge (OneTouch Delica #100 ea 09/13/21 10/22/21 Rx Lancets) ferrous sulfate 142 mg (45 mg 142 mg PO QAM 10/22/21 10/31/21 History iron) tablet,extended release (Slow Fe) sodium sul 1.479 gram-potas ch See Rx Instructions PO .COMPLEX 10/23/21 Rx 0.188 gram-magnes sul 0.225 gram #24 tab tablet (Sutab) lisinopril 5 mg tablet 5 mg PO HS 10/25/21 10/31/21 History venlafaxine 75 mg capsule,extended 75 mg PO QPM 10/25/21 10/31/21 History release 24 hr pantoprazole 40 mg tablet,delayed 40 mg PO DAILY #30 tab 11/04/21 Rx release (Protonix) Past Med/Surg History Medical History Anemia Anxiety and depression Arthritis Diabetes mellitus, type 2 GERD (gastroesophageal reflux disease) Hx of gastric ulcer PYLORIC ULCER Hypertension Migraine Mitral valve prolapse NO CARDS "MILD" Multiple sclerosis Surgical History H/O exploratory laparotomy (09/07/21) Exploratory Laparotomy and Suture Repair of Perforated Pre Pyloric Gastric Ulcer - Randall Randall MD, FACS abdominal washout 09/07/2021 History of colonoscopy [place] teeth removed Family History Aunt Breast cancer Sister Non-Hodgkin lymphoma Mother Schizophrenia Lung cancer Grandfather (Paternal) Stroke Father AA (alcohol abuse) Other No family history of adverse response to anesthesia Denies family history of Ovarian cancer Prostate cancer Myocardial infarction Colorectal cancer Social History Smoking Status: Current every day smoker Tobacco Type: Cigarettes Age Started Using Tobacco: 15; packs per day: 1.5; Years Smoked: 41; Cigarettes Per Day: 20 CIG DAILY *ADVISED; Second Hand Exposure: Yes; Hx Alcohol Use: Yes Alcohol type: hard liquor Alcohol Intake Frequency: 4 or More x per/Week Hx Substance Use: No Preferred Language: Ethiopian Communication Ability: Effective Visual Impairment: No Limitations Hearing Ability: Normal Green Building Architect Required: No Beliefs That Will Affect Care: None marital status: Current Living Situation: Spouse current occupational status: employed 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 How many Children do You have: 3 Feels Safe at Home: Yes Childhood Exposure to Second-Hand Smoke: Yes caffeine: Yes during the past year weight has: remained stable Dental Care, Regularly: No Physical Activity Frequency: 3-4 Times per Week Seatbelt Use: always Sunscreen Use: Yes Assistive Devices: None Review of Systems Constitutional: no fever and no body aches Eyes: no blind spots Ear, Nose, Mouth, Throat: no ear pain and no ear trauma Respiratory: no cough Cardiovascular: no chest pain Gastrointestinal: no abdominal pain Genitourinary: no dysuria Musculoskeletal: no back pain Integumentary: no acne and no rash Neurologic: no gait abnormality Psychiatric: no behavioral changes Endocrine: no polydipsia Hematologic / Lymphatic: no easy bleeding Allergy / Immunological: no GI upset with certain foods Physical Exam Constitutional: WD/WN, vitals as above Eyes: PERRL, conjunctivae normal, anicteric sclerae ENMT: external ear and nose normal, oropharynx normal Neck: trachea midline, no thyromegaly Respiratory: normal respiratory effort, lungs clear to auscultation Cardiovascular: RRR, no murmur, no edema Gastrointestinal (Abdomen): normal bowel sounds, soft, nontender, no hepatosplenomegaly Musculoskeletal: no cyanosis or clubbing, extremities motor strength 5/5 Skin: no rashes, warm and dry Neurologic: PERRL, EOMI, accommodation nl, no face palsy, no dysarthria Psychiatric: A+Ox3, euthymic affect Lymphatic: no cervical or axillary lymphadenopathy Results & Data Results & Data ([facility]) Vital Signs (Past 12 Hours) Vital Signs Temp Pulse Resp BP Pulse Ox 11/19/21 10:40 98 H 20 99 11/19/21 10:30 92 H 23 100 11/19/21 10:20 96 H 20 100 11/19/21 10:19 92 H 22 100 11/19/21 09:55 88 22 100 11/19/21 09:50 98 H 24 11/19/21 09:48 102 H 15 11/19/21 09:40 103 H 25 H 11/19/21 09:35 97 H 24 11/19/21 09:30 94 H 25 H 173/97 H 11/19/21 09:25 97 H 27 H 11/19/21 09:20 95 H 24 11/19/21 09:15 101 H 26 H 181/96 H 99 11/19/21 09:10 98 H 100 11/19/21 09:07 155/123 H 11/19/21 09:06 101 H 26 H 100 11/19/21 08:55 100 H 23 11/19/21 08:50 101 H 21 11/19/21 08:45 124 H 26 H 11/19/21 08:40 106 H 26 H 99 11/19/21 08:37 36.8 C 102 H 28 H 199/101 H 100 PG Care Time/CCT Total # of Minutes Spent Total Time Spent with Patient: Total time spent is greater than 50% in coordination of care (as documented) at patient's floor/unit and/or counseling patient: Coding Level of Care Code 87936 Initial Inpt Care Lvl 3 Diagnoses Stroke-like episode R29.90 Multiple sclerosis G35 Neck pain M54.2 Hypertension I10
--- NOTE | 2021-11-19 12:03 | Neurology Consultation ---
Date of Consultation November 19, 2021 Assessment & Plan (1) Stroke-like episode: (2) Multiple sclerosis: (3) Alcoholism: (4) Neck pain: (5) Hypertension: patient had an episode this morning consisting of bilateral extremity weakness and numbness/tingling, right greater than left side, of uncertain etiology. A stroke or TIA does not make as much sense for this given the bilateral nature of the symptoms. The patient has chronic neck pain and a cervical spine lesion could do this. He does not have upper motor neuron signs on examination however. The patient does have a history of multiple sclerosis ( although it seems to be in active over the years ) and a flare-up cannot be excluded. Patient has a history of alcoholism and heavy cigarette smoking over the years. He is not quite given up alcohol completely. apparently, he was supposed to go to a rehabilitation place today but this happened prior, obviously. The patient had markedly elevated blood pressure on admission. 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 MRI of the brain and cervical spine, both with and without contrast. 2. Vitamin-D, B12, ESR, TSH, if not done recently. 3. initiating 81 milligram aspirin tablet daily is reasonable for now. 4. Will check fasting lipid profile and hemoglobin A1c. 5. Control blood pressure as you are doing, aiming for a mean arterial pressure of 100. Overall, I spent a total of 60 minutes with this case including review of records, direct evaluation the patient at bedside, and discussion of the case with the patient and at bedside, RN at bedside, and Dr. Deutsch, including differential diagnosis and treatment options. History of Present Illness Reason for Consultation: Patient is a 56-year-old, who was asked to see at the request of Dr. Deutsch, for neurologic evaluation regarding possible stroke / TIA with a history of MS. Requesting Physician: Dr. Deutsch Attending Physician: Blaine Deutsch History of Present Illness this patient was diagnosed with MS back in 2008 by a physician in [place]. At that time he had had significant headaches and MRI showed white matter spots (I do not have any of these records). A lumbar puncture apparently was obtained and was supposedly positive for changes seen in MS. He was then diagnosed with a condition and put on Avonex once per week. He took this for about a week and then discontinued because he did want to get the blood tests required for the medication. He has been off disease modifying therapy for many years since. He moved to the [facility] in 2016 from [place] currently living in [place]. He has not seen any neurologist during this time. The patient has a history of diabetes, hypertension, mitral valve prolapse, and intermittent neck pain Patient is a heavy cigarette smoker over 40 years and was a heavy alcohol user, particularly during "". In August of 2021 he had a perforated gastric ulcer that required surgery by Dr. Randall. He essentially quit alcohol since but has on rare occasion had 3 or 4 drinks in a day. This most recently happened yesterday. the patient woke this morning at around 07:00. He felt reasonably well. Around 0715 to 0730, he was picking things up off the floor when he suddenly stumbled and lost his balance falling landing on his right arm. He could not get up. He had no near syncope or loss of consciousness. He had no seizure activity and was awake and alert the entire time. He felt that his left foot may have been somewhat numb and that is what made him fall but he was not certain. Following this he needed help getting up and felt the all 4 limbs were weak and tingly. The right side may have been worse than the left. EMS felt that his right side was little worse than his left and he may have had some mild speech problems for short time but by the time he got to the emergency room he was essentially resolved. He arrived to the emergency room at 08:37 with a temperature 36.8, pulse 102, respiratory 28, blood pressure 199/100, and O2 saturation 100 percent. CBC showed mild anemia Chem profile showed a glucose of 155. CT scan of the head was unremarkable. CT angiography of the head neck were unremarkable with no vascular stenoses or anomalies. The patient feels back to near baseline with his strength may have a little bit of dysesthesias in his hands or feet. He has some neck pain that is chronic. He feels that his balance is not quite back to baseline either. Allergies Allergy/AdvReac Type Severity Reaction Status Date / Time No Known Allergies Allergy Verified 10/31/21 08:49 Home Medications Medication Instructions Recorded Confirmed Type blood sugar diagnostic (RotaryViewTouch #100 ea 09/13/21 10/22/21 Rx Verio test strips) glimepiride 1 mg tablet (Amaryl) 1 mg PO QAM #30 tab 09/13/21 10/31/21 Rx lancets 33 gauge (OneTouch Delica #100 ea 09/13/21 10/22/21 Rx Lancets) ferrous sulfate 142 mg (45 mg 142 mg PO QAM 10/22/21 10/31/21 History iron) tablet,extended release (Slow Fe) sodium sul 1.479 gram-potas ch See Rx Instructions PO .COMPLEX 10/23/21 Rx 0.188 gram-magnes sul 0.225 gram #24 tab tablet (Sutab) lisinopril 5 mg tablet 5 mg PO HS 10/25/21 10/31/21 History venlafaxine 75 mg capsule,extended 75 mg PO QPM 10/25/21 10/31/21 History release 24 hr pantoprazole 40 mg tablet,delayed 40 mg PO DAILY #30 tab 11/04/21 Rx release (Protonix) Patient History Medical History (Updated 11/19/21 @ 11:56 by Jasson Schwartz MD) Anemia Anxiety and depression Arthritis Diabetes mellitus, type 2 GERD (gastroesophageal reflux disease) Hx of gastric ulcer PYLORIC ULCER Hypertension Migraine Mitral valve prolapse NO CARDS "MILD" Multiple sclerosis Surgical History H/O exploratory laparotomy (09/07/21) Exploratory Laparotomy and Suture Repair of Perforated Pre Pyloric Gastric Ulcer - Randall Randall MD, FACS abdominal washout 09/07/2021 History of colonoscopy [place] teeth removed Family History Aunt Breast cancer Sister Non-Hodgkin lymphoma Mother Schizophrenia Lung cancer Grandfather (Paternal) Stroke Father AA (alcohol abuse) Other No family history of adverse response to anesthesia Denies family history of Ovarian cancer Prostate cancer Myocardial infarction Colorectal cancer Social History Smoking Status: Current every day smoker Tobacco Type: Cigarettes Age Started Using Tobacco: 15; packs per day: 1.5; Years Smoked: 42; Cigarettes Per Day: 20 CIG DAILY *ADVISED; Second Hand Exposure: Yes ( A CHILD); Hx Alcohol Use: Yes Alcohol type: hard liquor Alcohol Intake Frequency: 4 or More x per/Week Hx Substance Use: No Preferred Language: Hebrew Communication Ability: Effective Visual Impairment: No Limitations Hearing Ability: Normal Health Safety Instructor Required: No Beliefs That Will Affect Care: None marital status: Current Living Situation: Spouse current occupational status: employed 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 How many Children do You have: 3 Feels Safe at Home: Yes Childhood Exposure to Second-Hand Smoke: Yes caffeine: Yes during the past year weight has: remained stable Dental Care, Regularly: No Physical Activity Frequency: 3-4 Times per Week Seatbelt Use: always Sunscreen Use: Yes Assistive Devices: Glasses Review of Systems Constitutional: no fever, no fatigue and no weakness Eyes: no diplopia, no eye pain and no worsening vision Ear, Nose, Mouth, Throat: no ear pain, no tinnitus, no hearing loss, no dizziness, no snoring, no hoarseness and no dysphagia Respiratory: no cough and no dyspnea Cardiovascular: no chest pain, no palpitations and no lightheadedness Gastrointestinal: no abdominal pain, no nausea and no vomiting Musculoskeletal: + neck pain; no back pain, no radicular pain, no joint pain and no myalgia Integumentary: no rash and no lesions Neurologic: + gait abnormality and + numbness; no localized weakness, no generalized weakness, no tingling, no tremor(s), no abnormal movements, no headache(s), no abnormal speech, no confusion and no memory loss Psychiatric: no depression, no irritability, no anxiety, no difficulty concentrating, no confusion and no hallucinations Endocrine: no fatigue and no flushing Hematologic / Lymphatic: no easy bleeding and no easy bruising Allergy / Immunological: no urticaria and no problem reported Exam (Neuro) Physical Exam: The patient is ambidextrous The patient is awake, alert, and attentive. Speech is normal without any aphasia or dysarthria. The patient can name objects, repeat phrases, and has normal spontaneous speech. Mentation and thought processes are intact, with orientation to person, place and time, and normal fund of knowledge. Attention and concentration are normal. Mood and affect are normal and appropriate. General appearance and grooming are normal. Short and long-term memory are intact. The discs are sharp with positive venous pulsations bilaterally. There are no exudates, hemorrhages, or blood vessel changes seen. Pupils are 4 mm bilaterally and reactive to light. Extraocular eye muscles are intact without nystagmus. Visual acuity and visual santiago seem normal grossly to confrontation. There are no deficits to sensation in the face in all 3 distributions of the fifth cranial nerve bilaterally. Corneal reflexes are positive bilaterally. Facial strength and symmetry was normal bilaterally. Hearing seems normal emmanuel aterally. Palate moves well without asymmetry. There is normal sternocleidomastoid and trapezius (shoulder shrug) strength bilaterally. Tongue is midline with good strength bilaterally. Neck has a full range of motion without discomfort. There are no cervical bruits bilaterally. There are no cranial or ocular bruits. Heart is without murmur. There is a regular rhythm and rate. Cervical, thoracic, and lumbar spine are nontender to palpation. Gait is narrow based, with good arm swing, turns, and stance, although he was a little tentative with his walking. With outstretched arms there is no drift. There are no resting, postural, or action tremors. There is no ataxia with finger to nose testing. There is good facility in the hands. No other abnormal involuntary movements are noted. Motor strength is 5/5 diffusely in the arms bilaterally including deltoids, biceps, triceps, brachioradialis, wrist flexors and extensors, frozen foods manager, and intrinsic hand muscles. Motor strength is 5/5 diffusely in the legs bilaterally including hip flexors, quadriceps, hamstrings, gastrocnemius, tibialis anterior, tibialis posterior, and Peroneii muscles. Toe extensors are normal and there is good bulk in the extensor digitorum brevis muscles bilaterally. The limbs have good tone without rigidity or spasticity. There is no atrophy noted in the muscles. Muscle bulk is normal, there is no tenderness to p alpation, no myotonia to percussion, and no fasciculations seen. Sensory examination is intact to touch and pin throughout all 4 limbs diffusely. Reflexes are 1/4 in the biceps, triceps, brachioradialis, quadriceps, and Achilles tendons bilaterally. There is no clonus bilaterally. Toes are downgoing with plantar stimulation bilaterally. Peripheral pulses are present and of normal quality distally in all 4 limbs. There is no peripheral edema noted in the limbs. Results & Data ([facility]) Vital Signs (Past 12 Hours) Vital Signs Temp Pulse Resp BP Pulse Ox 11/19/21 10:40 98 H 20 99 11/19/21 10:30 92 H 23 100 11/19/21 10:20 96 H 20 100 11/19/21 10:19 92 H 22 100 11/19/21 09:55 88 22 100 11/19/21 09:50 98 H 24 11/19/21 09:48 102 H 15 11/19/21 09:40 103 H 25 H 11/19/21 09:35 97 H 24 11/19/21 09:30 94 H 25 H 173/97 H 11/19/21 09:25 97 H 27 H 11/19/21 09:20 95 H 24 11/19/21 09:15 101 H 26 H 181/96 H 99 11/19/21 09:10 98 H 100 11/19/21 09:07 155/123 H 11/19/21 09:06 101 H 26 H 100 11/19/21 08:55 100 H 23 11/19/21 08:50 101 H 21 11/19/21 08:45 124 H 26 H 11/19/21 08:40 106 H 26 H 99 11/19/21 08:37 36.8 C 102 H 28 H 199/101 H 100 PG Care Time/CCT Total # of Minutes Spent Total Time Spent with Patient: Total time spent is greater than 50% in coordination of care (as documented) at patient's floor/unit and/or counseling patient: Coding Level of Care Code 33960 Inpt Consult Level 5 Diagnoses Stroke-like episode R29.90 Multiple sclerosis G35 Alcoholism F10.20 Neck pain M54.2 Hypertension I10
--- NOTE | 2021-11-19 12:07 | XRay Report ---
ORBIT RADIOGRAPHS 3 VIEWS HISTORY: pre-MRI screening. COMPARISON: None. FINDINGS: There are no radiopaque foreign bodies identified within the orbits. IMPRESSION: No radiopaque foreign bodies identified within the orbits. ACT 112: Negative or not required by law. Electronically signed by: Salvador Myers M.D. 11/19/2021 12:06 PM
--- NOTE | 2021-11-19 14:58 | Electrocardiogram Report ---
Test Reason : Blood Pressure : / mmHG Vent. Rate : 106 BPM Atrial Rate : 106 BPM P-R Int : 170 ms QRS Dur : 088 ms QT Int : 344 ms P-R-T Axes : 052 -86 053 degrees QTc Int : 456 ms Sinus tachycardia Possible Left atrial enlargement Left axis deviation Inferior infarct (cited on or before 07-SEP-2021) Abnormal ECG When compared with ECG of 07-SEP-2021 01:52, Criteria for Anterior infarct are no longer Present Confirmed by Stefano Saldana ([id number]) on 11/19/2021 2:58:25 PM Referred By: Confirmed By:Stefano Saldana
[2021-11-19] MEDS ORDERED: VENLAFAXINE HCL XR 75 MG CAPXR PO SCH (21:00)
[2021-11-19] MEDS ORDERED: lisinopril 5 MG TAB PO SCH (21:00)
[2021-11-19] MEDS ORDERED: GADOBUTROL 65ML VIAL IV ONE (21:53)
--- NOTE | 2021-11-20 07:13 | Magnetic Resonance Report ---
Brain MRI WITH AND WITHOUT CONTRAST HISTORY: right sided weakness/ h/o of multiple sclerosis TECHNIQUE: Multiplanar multisequence MRI of the brain was performed both before and after the intrave nous administration of contrast. COMPARISON STUDY: Head CT 11/19/2021. FINDINGS: There are few scattered punctate foci of restricted diffusion within the left temporal and parietal lobes consistent with acute infarcts. There are few scattered foci of T2 hyperintensity seen within the periventricular and subcortical white matter of the supratentorial brain. These are nonsp ecific but could be seen in the setting of microvascular ischemic change, a demyelinating disease, Ly me disease, or migraines. The ventricles and sulci demonstrate mild age-related involutional changes. There is no mass, hematoma, midline shift. The major vascular flow-voids at the skull base are well- maintained. There is a small retention cyst within the right maxillary sinus. The orbits are unremark able. A 3.3 cm arachnoid cyst within the left middle cranial fossa. Postcontrast sequences show no ar eas of abnormal enhancement. No mass, hematoma, midline shift. IMPRESSION: 1. A few scattered punctate acute infarcts seen within the left temporal and parietal lobes. 2. Nonspecific T2 hyperintense foci seen within the periventricular and subcortical white matter of t he supratentorial brain. This could be seen in the setting of microvascular ischemic change, Lyme dis ease, migraines, or a demyelinating disease in the appropriate clinical setting. 3. No abnormal enhancement identified. ACT 112: Negative or not required by law. Electronically signed by: Salvador Myers M.D. 11/20/2021 7:11 AM
[2021-11-20 07:47] LABS: Basophils # (auto) 0.06 K/uL (0-0.2); Basophils % (auto) 0.8 %; Eosinophils # (auto) 0.26 K/uL (0-0.5); Eosinophils % (auto) 3.6 %; Hematocrit (blood only) 38.5 % (42-52); Hemoglobin 11.3 g/dL (14.0-18.0); Immature Granulocytes # (auto) 0.01 K/uL (0.00-0.02); Immature Granulocytes % (auto) 0.1 %; Lymphocytes # (auto) 1.59 K/uL (1.2-3.4); Lymphocytes % (auto) 21.9 %; Mean Corpuscular Hemoglobin 22.8 pg (25-34); Mean Corpuscular Hgb Conc 29.4 g/dL (32-36); Mean Corpuscular Volume 77.8 fL (80-100); Mean Platelet Volume 8.8 fL (7.4-10.4); Monocytes # (auto) 0.78 K/uL (0.11-0.59); Monocytes % (auto) 10.8 %; Neutrophils # (auto) 4.55 K/uL (1.4-6.5); Neutrophils % (auto) 62.8 %; Platelet Count 299 K/uL (130-400); RDW Coefficient of Variation 22.9 % (11.5-14.5); RDW Standard Deviation 63.7 fL (36.4-46.3); Red Blood Count 4.95 M/uL (4.7-6.1); White Blood Count 7.25 K/uL (4.8-10.8)
--- NOTE | 2021-11-20 08:01 | Magnetic Resonance Report ---
MRI OF THE CERVICAL SPINE WITH AND WITHOUT CONTRAST CLINICAL HISTORY: Extremity weakness. Multiple sclerosis. COMPARISON: Cervical spine radiographs November 06, 2021. TECHNIQUE: Utilizing a 1.5 Kya magnet and dedicated coil, multiplanar, multiecho imaging of the ce rvical spine was performed before and after intravenous administration of 9 of Gadavist. FINDINGS: Alignment of the cervical spine is anatomic. Vertebral body heights are maintained. T1 marrow signal within the cervical spine and upper thoracic spine is diminished. Cervical cord caliber is normal. Th ere are multiple small foci of increased T2 signal within the cervical cord, including a small focus within the right aspect of the cord at the C2 level, a small focus of increased signal within the lef t aspect of the cord at the C3 level and a small focus within left aspect of the cord at the C5 level . There is no cord enhancement to suggest active demyelination. There is no intracanalicular mass or fluid collection. Paravertebral soft tissues are unremarkable. Mild multilevel degenerative disc dise ase is noted. There is moderate to severe multilevel facet arthrosis C2-C3: The central canal is patent. There is moderate left neural foraminal stenosis due to facet ar throsis. Right neural foramen is patent. C3-C4: Central canal is patent. Moderate left and mild right neural foraminal stenosis is present C4-C5: Central canal is patent. There is moderate to severe bilateral neural foraminal stenosis. C5-C6: Minimal posterior disc osteophyte complex is noted. Central canal is patent. There is moderat e to severe bilateral neural foraminal stenosis due to uncovertebral hypertrophy and facet arthrosis C6-C7: Central canal is patent. Mild bilateral neural foraminal stenosis is present C7-T1: Central canal is patent. Moderate to severe right neural foraminal stenosis is present. Left neural foramen is patent IMPRESSION: 1. Several small foci of increased T2 signal within the cervical cord, as described above. These favo r previous sites of demyelination in the setting of multiple sclerosis. No enhancement to suggest act sangeetha demyelination. 2. Multilevel facet arthrosis which results in moderate to severe multilevel neural foraminal stenosi s, as detailed above. Patent central canal. 3. Diminished T1 marrow signal within the cervical spine and upper portion of the thoracic spine. No discrete lesions identified. This could be physiologic/related to anemia. However, a marrow prolifera tive or marrow replacement process could appear similar. ACT 112: Negative or not required by law. Electronically signed by: Justin De La Rosa M.D. 11/20/2021 8:00 AM
[2021-11-20 08:11] LABS: Anisocytosis Present; Hypochromasia Present
[2021-11-20 08:16] LABS: Calcium 9.3 mg/dl (8.5-10.1); Chol HDL Ratio 5.5 (0-5); Est GFR (African American) 112.6 ml/min; Est GFR (Non-African American) 97.2 ml/min; Potassium 3.8 mmol/L (3.5-5.1)
[2021-11-20 08:40] LABS: Folate (Folic Acid) 15.4 ng/ml (>5.38)
[2021-11-20 08:44] LABS: Vitamin D, 25 Hydrox 16.8 ng/ml (30-100)
[2021-11-20] MEDS ORDERED: PANTOprazole 40 MG TAB PO SCH (09:00)
[2021-11-20] MEDS ORDERED: FERROUS SULFATE 325 MG TAB PO SCH (09:00)
[2021-11-20] MEDS ORDERED: ASPIRIN 81 MG ECTAB PO SCH (09:00)
[2021-11-20 09:25] LABS: Estimated Average Glucose 97 mg/dl
--- NOTE | 2021-11-20 10:55 | Neurology Progress Note ---
Date of Service November 20, 2021 Assessment & Plan (1) Stroke-like episode: (2) Multiple sclerosis: (3) Alcoholism: (4) Neck pain: (5) Hypertension: Plan: Patient had an episode , the morning of November 19, consisting of bilateral extremity weakness and numbness/tingling, right greater than left side. MRI of the brain reveals some left-sided punctate strokes in a scattered fashion. This could explain some right-sided symptoms but not anything on the left. Today, he has no residual symptoms and no focal abnormalities on exam. Etiology of these strokes is not readily apparent. I cannot exclude emboli but CT angiography showed no focal stenotic lesions in the head or neck. An echocardiogram is pending. MRIs of the brain and cervical spine show old lesions consistent with multiple sclerosis. They are not active. He does not have upper motor neuron signs on examination. Patient has a history of alcoholism and heavy cigarette smoking over the years. He is not quite given up alcohol completely. apparently, he was supposed to go to a rehabilitation place today but this happened prior, obviously. The patient had markedly elevated blood pressure on admission. Today, his blood pressure is improved. The patient has somewhat low B12 and a markedly low vitamin-D. Recommendations: 1. continue 81 milligram aspirin tablet daily. 2. I see no reason for an anticoagulant currently but echocardiogram is pending. 3. Replace vitamin-D with 5000 units vitamin-D 3 daily. 4. Multiple vitamin with B vitamins (including B12 ) daily. 5. Control blood pressure as you are doing, aiming for a mean arterial pressure of 100. 6. I can follow as an outpatient. Follow-up in 2-3 weeks with Neurology PA in clinic. 7. There is no need for a disease modifying therapy for multiple sclerosis at this time. I will reconsider as an outpatient. Overall, I spent a total of 60 minutes with this case including review of records, Review of the MRI films, direct evaluation the patient at bedside, and discussion of the case with the patient and RN at bedside, RN at bedside, Dr. De La Rosa, radiology, and Dr. Deutsch, including differential diagnosis and treatment options. Admission and Anticipated Discharge Date Admission Date: November 19, 2021 Subjective Patient has no complaint of pain or headache. He is not dizzy and has no vision issues. Nursing reports no abnormal events. Blood pressure is 157/84 and he is afebrile. CBC shows a stable mild anemia and glucose was 123. Chem profile was otherwise unremarkable. Hemoglobin A1c was quite normal at 5.0. B12 was slightly low at 181. Vitamin-D was low at 16.8. Total cholesterol was normal at 166 and triglycerides of 136. MRI of the brain showed multiple tiny scattered cortical surface and somewhat deeper temporal and parietal acute infarcts. I reviewed this with Dr. De La Rosa, radiology. In addition the patient had lesions consistent with multiple sclerosis noting lesions perpendicular to the ventricles on sagittal cube flare sequences MRI of the cervical spine revealed 2 or 3 old white matter lesions consistent with MS. There was some minor degenerative changes of disc in bone without significant stenosis. Results & Data ([facility]) Vital Signs (Past 12 Hours) Vital Signs Temp Pulse Pulse Resp BP Pulse Ox 11/20/21 07:57 77 11/20/21 07:34 36.8 C 80 18 157/84 H 98 11/20/21 03:52 36.5 C 96 H 23 146/78 H 99 11/19/21 23:24 36.8 C 91 H 18 148/78 H 99 11/19/21 23:22 94 H Exam (Neuro) Physical Exam: He is awake and alert. Speech is without aphasia or dysarthria. Mood and affect are normal appropriate. Thought processes are intact with good long and short-term memory. He is pleasant and cooperative. Extraocular eye muscles are intact without nystagmus. There is no facial droop. Tongue is midline. Coordination is normal in the arms. There is no tremor or ataxia. Strength is symmetric in the limbs. Gait is stable. PG Care Time/CCT Total # of Minutes Spent Total Time Spent with Patient: Total time spent is greater than 50% in coordination of care (as documented) at patient's floor/unit and/or counseling patient: Coding Level of Care Code 53300 Subseq Hosp Care Lvl 3 Diagnoses Stroke-like episode R29.90 Multiple sclerosis G35 Alcoholism F10.20 Neck pain M54.2 Hypertension I10 Time Spent (min) 60 Comment add modifiers if able
--- NOTE | 2021-11-20 13:00 | XCELERA ---
[id number]
[2021-11-20] MEDS ORDERED: ATORVASTATIN 40 MG TAB PO ONE (14:37)
[2021-11-20] MEDS ORDERED: STROKE PATIENT DISCHARGE STA (14:47)
--- NOTE | 2021-11-20 15:09 | Pharmacy Report ---
Pharmacist Stroke Counseling - Date of Service November 20, 2021 - Scope: Pharmacy has been consulted to provide medication discharge counseling for this patient admitted with stroke as per the Pharmacist Discharge Counseling for Stroke Patients Protocol. - Medications on Discharge: Home Medications Medication Instructions Recorded Confirmed ferrous sulfate 142 mg (45 mg 142 mg PO QAM 10/22/21 10/31/21 iron) tablet,extended release (Slow Fe) lisinopril 5 mg tablet 5 mg PO HS 10/25/21 10/31/21 venlafaxine 75 mg capsule,extended 75 mg PO QPM 10/25/21 10/31/21 release 24 hr New Rx's Medication Instructions Recorded blood sugar diagnostic (OneTouch #100 ea 09/13/21 Verio test strips) glimepiride 1 mg tablet (Amaryl) 1 mg PO QAM #30 tab 09/13/21 lancets 33 gauge (OneTouch Delica #100 ea 09/13/21 Lancets) sodium sul 1.479 gram-potas ch See Rx Instructions PO .COMPLEX 10/23/21 0.188 gram-magnes sul 0.225 gram #24 tab tablet (Sutab) pantoprazole 40 mg tablet,delayed 40 mg PO DAILY #30 tab 11/04/21 release (Protonix) aspirin 81 mg tablet,delayed 81 mg PO QAM #30 tab 11/20/21 release atorvastatin 40 mg tablet 80 mg PO PM #30 tab 11/20/21 cholecalciferol (vitamin D3) 125 5,000 unit PO DAILY #30 tab 11/20/21 mcg (5,000 unit) tablet (Vitamin D3) multivitamin 1 tab PO DAILY #30 tab 11/20/21 - Action: The above medications, specifically ones for stroke treatment/prophylaxis, have been reviewed in detail with the patient and/or patient patient care representative(s) prior to discharge. This includes indication, common adverse reactions, drug interactions, and medication administration. Medication counseling has been employed using the teach-back method to ensure understanding. - Outcome: The patient and/or patient patient care representative(s) have demonstrated understanding of the medications. Additional comments: Discussed new medications with patient. Reviewed doses and administration, side effects to look out for. Patient had no further questions. Thank you for allowing pharmacy to be involved in the care of this patient. Please call [phone] with any additional questions
[2021-11-20] MEDS ORDERED: ATORVASTATIN 40 MG TAB PO SCH (21:00)
--- NOTE | 2021-11-24 12:30 | Discharge Summary ---
Date of Service November 20, 2021 Admission HPI Per Admitting Provider 56 yo male with PMH described below presents to the Hospital after falling. Patient woke up at7:00 and the episode occured at 7:15 am. He states he did not have a syncopal episode nor did he lose conscoiussness. Patient did not have any seizure activity. Patient states he was taking out the garbage when he felt his left leg get weak and he fell on his right side. Patient reports he couldn't get up. He called for help by his son, who then called EMS. Patient was not hypoglycemic. Principal Diagnosis acute ischemic stroke Discharge Exam Constitutional WD/WN, vitals as above Eyes PERRL, conjunctivae normal, anicteric sclerae ENMT external ear and nose normal, oropharynx normal Neck trachea midline, no thyromegaly Respiratory normal respiratory effort, lungs clear to auscultation Cardiovascular RRR, no murmur, no edema Gastrointestinal (Abdomen) normal bowel sounds, soft, nontender, no hepatosplenomegaly Musculoskeletal no cyanosis or clubbing, extremities motor strength 5/5 Skin no rashes, warm and dry Neurologic PERRL, EOMI, accommodation nl, no face palsy, no dysarthria Psychiatric A+Ox3, euthymic affect Lymphatic no cervical or axillary lymphadenopathy Discharge Data Allergies Allergy/AdvReac Type Severity Reaction Status Date / Time No Known Allergies Allergy Verified 10/31/21 08:49 Consultations 11/19/21 09:24 Consult Neurology Routine ED Decision to Admit Stat Ordered Studies 11/19/21 08:13 CT angio head w con Stat CT angio neck with con Stat CT head/brain wo con Stat 11/19/21 09:58 MR brain wo/w con Urgent 11/19/21 12:02 MR cervical spine wo/w con Routine Hospital Course (1) Stroke-like episode: Stroke like episode in a 56 yo male with history of smoking. consulted Neuro MRI late confirmed acute ischemic strokes. appreciate input from Neuro: MRIs of the brain and cervical spine show old lesions consistent with multiple sclerosis. They are not active. He does not have upper motor neuron signs on examination. Patient has a history of alcoholism and heavy cigarette smoking over the years. He is not quite given up alcohol completely. apparently, he was supposed to go to a rehabilitation place today but this happened prior, obviously. The patient had markedly elevated blood pressure on admission. Today, his blood pressure is improved. The patient has somewhat low B12 and a markedly low vitamin-D. Recommendations: 1. continue 81 milligram aspirin tablet daily. 2. I see no reason for an anticoagulant currently. Echo negative. 3. Replace vitamin-D with 5000 units vitamin-D 3 daily. 4. Multiple vitamin with B vitamins (including B12 ) daily. 5. I can follow as an outpatient. Follow-up in 2-3 weeks with Neurology PA in clinic. 6. There is no need for a disease modifying therapy for multiple sclerosis at this time. I will reconsider as an outpatient. (2) Multiple sclerosis: appears stable. will monitor (3) Neck pain: obtained MRI of c spine. no fracture noted (4) Hypertension: resume home meds Total Time Total Time Spent Total Time Spent (In Minutes): 35 Discharge Plan Discharge Items Patient Disposition: Home - Self-Care Reason For Visit: RIGHT SIDED WEAKNESS/POSSIBLE STROKE Discharge Diagnosis: right sided weakness/ possible stroke. Activity: Resume your previous activity Non-emergency contact: Primary Care Provider Call non-emergency contact if: you have any medication questions Follow-up/Referrals: Newton Chu III, CRNP [Primary Care Provider] - 12/02/21 4:00 pm Diet: Regular Addtl Attending Provider Instructions: 1. continue 81 milligram aspirin tablet daily. 2. I see no reason for an anticoagulant currently 3. Replace vitamin-D with 5000 units vitamin-D 3 daily. 4. Multiple vitamin with B vitamins (including B12 ) daily. 5. Follow-up in 2-3 weeks with Neurology PA in clinic. 6. There is no need for a disease modifying therapy for multiple sclerosis at this time. I will reconsider as an outpatient. Risk Factors for Stroke: You can reduce your chances of stroke by working with your medical provider to adopt a healthy lifestyle. Some specific ways to lower your chance of stroke are: * If you are a smoker, now is the time to stop smoking cigarettes * If you are diabetic, improve the control of your blood sugars * Avoid excessive amounts of alcohol * Control high blood pressure * Lose weight if you are overweight * Be sure to lead an active lifestyle * Eat a healthy diet low in salt, cholesterol and fat You should know about other risk factors for stroke that you are unable to control. These include: * Age 55 years or older * Male gender * Certain racial groups: , or / * Family History of Stroke, Mini stroke or Heart Attack * Sickle Cell Disease Follow Up: It is important for you to keep your follow up appointments with your medical provider. Who to Call and When: Medical Emergencies: Call 911 immediately if you experience any of the following warning signs and symptoms of Stroke: * Sudden numbness or weakness of the face, arm or leg, especially on one side of the body * Sudden confusion, trouble speaking or understanding * Sudden trouble seeing in one or both eyes * Sudden trouble walking, dizziness, loss of balance or coordination * Sudden severe headache with no cause Do not delay calling 911 if you experience any warning signs or symptoms of a stroke. Delay in seeking medical attention may affect what treatments can be given to you. . Pending Studies at Discharge: No Stand-Alone Forms: Medications to Prevent Stroke, [facility] [place], Smoking Cessation Medications and DC Order Prescriptions: New cholecalciferol (vitamin D3) [Vitamin D3] 125 mcg (5,000 unit) tablet 5,000 unit PO DAILY Qty: 30 RF: 0 multivitamin Tablet 1 tab PO DAILY Qty: 30 RF: 0 atorvastatin 40 mg Tablet 80 mg PO PM Qty: 30 RF: 0 aspirin 81 mg Tablet,Delayed Release (Dr/Ec) 81 mg PO QAM Qty: 30 RF: 0 Continued Sutab 1.479-0.188- 0.225 gram tablet See Rx Instructions PO .COMPLEX Qty: 24 RF: 0 pantoprazole [Protonix] 40 mg tablet,delayed release (DR/EC) 40 mg PO DAILY Qty: 30 RF: 2 Slow Fe 142 mg (45 mg iron) tablet extended release 142 mg PO QAM RF: 0 (DME) OneTouch Verio test strips Strip See Rx Instructions .Route Qty: 100 RF: 2 (DME) lancets [OneTouch Delica Lancets] 33 gauge misc See Rx Instructions .Route Qty: 100 RF: 1 glimepiride [Amaryl] 1 mg tablet 1 mg PO QAM Qty: 30 RF: 2 venlafaxine 75 mg capsule,extended release 24hr 75 mg PO QPM RF: 0 lisinopril 5 mg tablet 5 mg PO HS RF: 0 Discharge Orders: Discharge Order (Routine); Ordered 11/20/21 Ordered By: Blaine Deutsch Admission Data Admit Date/Time: 11/19/21 09:22 Attending Provider: Blaine Deutsch Admit Provider: Blaine Deutsch Primary Care Provider: Newton Chu III Other Providers: Blaine Deutsch ; Jasson Schwartz Other Interventions: Discharge Summary Assessment (RN) Last Done: 11/20/21 14:51 Discharge Summary Assessment (RN) Last Done: 11/20/21 15:30 Coding Level of Care Code D/C DAY MANAGEMENT >30 MINS Diagnoses Stroke-like episode R29.90 Multiple sclerosis G35 Neck pain M54.2 Hypertension I10
== END 2021-11-20 15:30 | disposition home or self-care (01) | DRG 65 ==
LOC: ED 08:15 → EDINP 09:22 → 2S 13:09